=== PATIENT | male | born 1935 | race Caucasian/White ===

== ENCOUNTER → 2016-09-20 | Outpatient (CLI) | payer MEDICARE ==
--- NOTE | 2016-09-20 12:19 | EST ---
DATE OF SERVICE: 09/20/2016 AGE: 80Y SEX: M HT: 70 WT: 223 lbs. Protocol Quoc: X Other: Stage: I Dur. of Exercise: 2 minutes *Heart Rate Blood Pressure *Rest: 70 Rest: 139/106 * *Max. Achieved: 125 Maximum BP: 146/94 85% PMHR: 119 100% PMHR: 146 *METS: 3.2 INDICATIONS: Chest pain. MEDICATIONS: Verapamil, warfarin. Patient was exercised for a total period of 2 minutes. The peak heart rate of 125 was achieved. Maximum blood pressure of 146/94 mmHg was noted. Test was terminated because patient got short of breath and tired. Resting EKG shows normal sinus rhythm with normal AK interval and QRS duration and normal ST-T waves. No ST segment depression suggestive of ischemia is noted. FINAL IMPRESSION: 1. There is no evidence of any ST segment depression to suggest ischemia during exercise. 2. Patient's exercise tolerance is significantly limited and he exercised only for 2 minutes.
== END | disposition home or self-care (01) ==
LOC: RADNMMAIN 10:49
PROVIDERS: ATTEND Internal Medicine
DX: R07.89 Other chest pain (principal)
CPT/HCPCS: 93017

== ENCOUNTER 2016-11-01 08:31 | Emergency (ER) | payer MEDICARE ==
--- NOTE | 2016-11-01 08:53 | ED ---
Extremity Problem HPI - General Chief complaint: Extremity Problem,Nontraumatic Stated complaint: leg pain, blood clot Time Seen by Provider: 11/01/16 08:46 Source: patient, RN notes reviewed Mode of arrival: ambulatory Limitations: no limitations - History of Present Illness Initial comments: [id number] male presents emergency Department chief complaint of right ankle pain. Patient states that he has been having some pain to his right ankle and itching for the last day or so. Patient states that he has a history of blood clots he has been using his medication COumadin as prescribed patient at this area pain and some redness to right ankle states that he should be seen. Patient has been able to walk. Patient denies any shortness of breath or difficulty breathing. Patient states it's worse to touch or movement. Patient states that he was concerned due to his symptoms were thought that he should be evaluated.Patient denies any recent fever, chills, shortness of breath , chest pain, back pain, abdominal pain, nausea vomiting, numbness or tingling, dysuria or hematuria, constipation or diarrhea, headaches or visual changes, or any other current symptoms. - Related Data Home Medications Medication Instructions Recorded Confirmed Verapamil HCl [Calan] 80 mg PO QID 10/18/13 11/01/16 Multivitamin/Iron/Folic Acid 1 tab PO DAILY 07/06/14 11/01/16 [Centrum Complete Multivit Tab] Docusate [Colace] 100 mg PO DAILY PRN 11/01/16 11/01/16 Warfarin [Coumadin] 5 mg PO HS 11/01/16 11/01/16 Allergies Allergy/AdvReac Type Severity Reaction Status Date / Time Penicillins Allergy Rash/Hives Verified 11/01/16 09:13 Sulfa (Sulfonamide Allergy Unknown Verified 11/01/16 09:13 Antibiotics) Review of Systems ROS Statement: Those systems with pertinent positive or pertinent negative responses have been documented in the HPI. ROS Other: All systems not noted in ROS Statement are negative. Past Medical History Past Medical History: Atrial Fibrillation, Deep Vein Thrombosis (DVT), Hypertension Additional Past Medical History / Comment(s): DVT X3, DIVERTICULITIS, SHOE LIFT RT SHOE-NO BALANCE ISSUES, History of Any Multi-Drug Resistant Organisms: None Reported Past Surgical History: Adenoidectomy, Appendectomy, Cholecystectomy, Hernia Repair, Joint Replacement, Tonsillectomy Additional Past Surgical History / Comment(s): CHRIS INGUINAL HERNIAS, RT HIP HIPLACEMENT. PER PT'S IN 2011 PT HAD BURST VESSEL THAT WENT TO BOWEL TOOK 3 SX TO REPAIR. HAD THE SX AT [facility] IN [facility].ORIF RT WRIST , [place] filter Past Anesthesia/Blood Transfusion Reactions: No Reported Reaction Past Psychological History: No Psychological Hx Reported Smoking Status: Never smoker Past Alcohol Use History: None Reported Past Drug Use History: None Reported - Past Family History Father Additional Family Medical History / Comment(s): AGE 96 HAD A HEART TRANSPLANT AT AGE 91 Mother Family Medical History: Unable to Obtain General Exam - General Exam Comments Initial Comments: General: The patient is awake and alert, in no distress, and does not appear acutely ill. Neck: The neck is supple, there is no tenderness. Cardiovascular: There is a regular rate and rhythm. No murmur, rub or gallop is appreciated. Respiratory: Lungs are clear to auscultation, respirations are non-labored, breath sounds are equal. No wheezes, stridor, rales, or rhonchi. Musculoskeletal: Sensation intact with 2+ pulses. Extremity. Full range of motion of right knee and ankle with a negative Homans sign. Patient does have multiple varicose veins. There is some tenderness over the medial aspect of the right ankle. There is varicose vein there. Suspected superficial thrombophlebitis. Neurological: CN II-XII intact, There are no obvious motor or sensory deficits. Coordination appears grossly intact. Speech is normal. Skin: Skin is warm and dry and no rashes or lesions are noted. Psychiatric: Normal mood and affect. Limitations: no limitations Course Vital Signs 11/01/16 08:35 Temperature 97.7 F Pulse Rate 70 Respiratory 20 Rate Blood Pressure 142/87 O2 Sat by Pulse 98 Oximetry Medical Decision Making - Medical Decision Making 81-year-old female with history of blood clots presents for right lower extremity pain. 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 Coumadin level is 1.6 we did discuss this is the lowest range. We did discuss needs to contact his doctor this value. The patient stated that he understood and he is in agreement with plan. This time the patient will be discharged home. - Lab Data Lab Results 11/01/16 Range/Units 10:40 PT 15.9 H (9.0-12.0) sec INR 1.6 (<1.1) - Radiology Data Radiology results: report reviewed, image reviewed Disposition Clinical Impression: DVT (deep venous thrombosis) Disposition: HOME SELF-CARE Condition: Stable Instructions: Deep Venous Thrombosis (ED) Additional Instructions: Please use medication as discussed. Please follow up with family doctor if symptoms have not improved over the next two days. Please return to the emergency room if your symptoms increase or worsen or for any other concerns. Please follow up with for recheck of your INR in 2 days. Referrals: Scot Chapa MD [Primary Care Provider] - 1-2 days Time of Disposition: 11:03
--- NOTE | 2016-11-01 10:25 | US ---
EXAMINATION TYPE: US venous doppler duplex LE RT DATE OF EXAM: 11/01/2016 10:08 AM COMPARISON: US 2016 CLINICAL HISTORY: Pain. Swelling right ankle x 2 days SIDE PERFORMED: Right TECHNIQUE: The lower extremity deep venous system is examined utilizing real time linear array sonog rosalva with graded compression, doppler sonography and color-flow sonography. VESSELS IMAGED: External Iliac Vein (EIV) Common Femoral Vein Deep Femoral Vein Greater Saphenous Vein * Femoral Vein Popliteal Vein Small Saphenous Vein * Proximal Calf Veins (* superficial vessels) Right Leg: Thready flow noted. Was able to compress and get augmented flow. ? chronic DVT right Fem oral vein through proximal popliteal vein. IMPRESSION: It is difficult to exclude mild chronic DVT right femoral vein.
[2016-11-01 10:58] LABS: INR 1.6 (<1.1); Prothrombin Time 15.9 sec (9.0-12.0)
[2016-11-01] MEDS ORDERED: WARFARIN 5 MG TAB PO STA (11:04)
[2016-11-01 11:26] VITALS: BP 126/73; PULSE 64; RESP 18; TEMP 97.8
== END 2016-11-01 11:28 | disposition home or self-care (01) ==
LOC: EC 08:31
DX: I82.511 Chronic embolism and thrombosis of right femoral vein (principal); I82.531 Chronic embolism and thrombosis of right popliteal vein; R89.2 Abnormal level of other drugs, medicaments and biological substances in specimens from other organs, systems and tissues; Z91.138 Patient's unintentional underdosing of medication regimen for other reason; T45.516A Underdosing of anticoagulants, initial encounter; I48.91 Unspecified atrial fibrillation; I10 Essential (primary) hypertension; Z79.899 Other long term (current) drug therapy; Z88.2 Allergy status to sulfonamides; Z88.0 Allergy status to penicillin; Z86.718 Personal history of other venous thrombosis and embolism; Z79.01 Long term (current) use of anticoagulants
CPT/HCPCS: 36415; 85610; 99284

== ENCOUNTER 2017-06-05 10:12 | Day surgery (SDC) | payer MEDICARE ==
[2017-05-28 14:47] VITALS: BMI 33.0
[~2017-06-05 10:12] MED LIST: DEXAMETHASONE SOD PHOSPHATE 10 MG/ML 1 ML VIAL IV ONE; LACTATED RINGERS 1,000 ML IV SCH; ONDANSETRON 4 MG/2 ML VIAL IVP ONE
[2017-06-05 10:48] VITALS: TEMP 98.7
[2017-06-05] MEDS: CYCLOPENTOLATE 1% OPHTH SOLN 2 ML BTL OP ONE ×3 (10:50→11:13)
[2017-06-05] MEDS: PHENYLEPHRINE 10% OPHTH DROPS 5 ML BTL OP ONE ×3 (10:53→11:16)
[2017-06-05] MEDS: FLURBIPROFEN 0.03% OPHTH DROPS 2.5 ML BTL OP ONE ×3 (10:58→11:25)
[2017-06-05] MEDS: LIDOCAINE 1% 20 ML VIAL (10MG/ML) FOR IV START INTRADERMA PRN ×2 (11:15→11:22)
[2017-06-05] MEDS ORDERED: PROPOFOL 10 MG/ML 20 ML VIAL IV ONE (11:31)
[2017-06-05] MEDS ORDERED: EPINEPHrine (PF) 0.5 ML in BALANCED SALT IRRIG SOLN COMB2 500 ML IRRIGATION ONE (11:33)
[2017-06-05] MEDS ORDERED: HYALURONATE SODIUM INTRAOCULAR 1 EACH SYRINGE (10MG/ML) INTRAOCULA ONE (11:35)
[2017-06-05] MEDS: BUPIVACAINE (PF) 0.75% 5 ML, HYALURONIDASE, HUMAN RECOMB 150 UNIT, LIDOCAINE 2% (PF) 10... MISCELLANE ONE ×6 (11:35→11:37)
[2017-06-05] MEDS ORDERED: BALANCED SALT IRRIG SOLN COMB2 15 ML IRRIG.SOLN IRRIGATION ONE (11:35)
[2017-06-05] MEDS ORDERED: TETRACAINE 0.5% OPHTH (PF) DROPS 4 ML BTL RIGHT EYE ONE (11:36)
--- NOTE | 2017-06-05 12:05 | P.OP ---
Date of Procedure: 06/05/17 Procedure(s) Performed: PREOPERATIVE DIAGNOSIS: Cataract, right eye. POSTOPERATIVE DIAGNOSIS: Cataract, right eye. OPERATION: Phacoemulsification cataract, right eye. DESCRIPTION OF PROCEDURE: The patient was taken to the preoperative holding area. Intravenous Propofol was given so as to bring about adequate sedation. The following mixture was given for local anesthesia: 5 mL of 2% lidocaine, 5 mL of 0.75% Marcaine, and 1 mL of Wydase. Approximately 4 mL was injected in the retrobulbar space of the surgical eye. Additional 1 mL was then directed to the temporal area of the surgical eye. This was performed to allow adequate neurological block of the facial muscles. The patient was revived and then taken into the operative room. The patient was prepped and draped in the usual sterile manner for the operative eye. A lid speculum was put into position. The conjunctiva was resected back from the limbus in the 12 o'clock position. Bleeding was controlled with electrocautery. A #69 blade was then used and a half-thickness scleral incision approximately 1-mm posterior to the limbus was made on bare sclera. This was shelved in the clear cornea using a crescent knife. Next a 15-degree blade was used to make a stab incision at the 3 o' clock position at the corneolimbal interface. Keratome blade was then used and the superior wound was extended into the anterior chamber. Viscoelastic was injected into the anterior chamber and to maintain its form. Next, a cystotome was used and a continuous anterior capsulotomy was made without difficulty. Hydrodissection using a blunt cannula and BSS was performed. Phaco probe was then employed and a groove extending from 12 to 6 o'clock in the lens was created. A Glenroy wand was used through the stab incision so as to perform a divide and conquer technique. Next an irrigation aspiration probe was utilized and any residual cortex was removed from the eye. Again, viscoelastic was injected into the anterior chamber. An Grayson posterior chamber lens implant was placed in the cartridge and injected into the anterior chamber without difficulty. The Sahale Snacksey hook was utilized to spin the lens into position and this was again performed without any difficulty. The irrigation and aspiration probe was again employed and any residual viscoelastic was removed from the eye. Then BSS was injected into the limbal stab incision and the anterior chamber re-inflated. The conjunctiva was reapproximated using electrocautery. One drop of 0.25% Timoptic was placed over the corneal along with TobraDex ophthalmic ointment. Two sterile patches and a Dejesus eye shield were taped into position. The patient was transported to the recovery room in stable condition. Pathology: none sent Condition: stable Disposition: same day
[2017-06-05 12:38] VITALS: BP 130/77; PULSE 62; RESP 18
[2017-06-05] MEDS ORDERED: TIMOLOL 0.5% OPHTH DROPS 5 ML BTL OP ONE (23:00)
[2017-06-05] MEDS ORDERED: GENTAMICIN/PREDNISOL AC OPHTH OINT 3.5GM OPHTHALMIC ONE (23:00)
== END 2017-06-05 12:52 | disposition home or self-care (01) ==
LOC: OR 10:12
PROVIDERS: ATTEND Ophthalmology
DX: H25.11 Age-related nuclear cataract, right eye (principal); I10 Essential (primary) hypertension; I48.91 Unspecified atrial fibrillation; Z86.718 Personal history of other venous thrombosis and embolism; Z88.0 Allergy status to penicillin; Z88.2 Allergy status to sulfonamides; Z79.01 Long term (current) use of anticoagulants; Z79.899 Other long term (current) drug therapy
CPT/HCPCS: 66984; V2632; V2788; J3470; J2001; J0171; J2704

== ENCOUNTER → 2017-08-28 | Outpatient (CLI) | payer MEDICARE ==
--- NOTE | 2017-08-28 11:20 | US ---
EXAMINATION TYPE: US venous doppler duplex LE LT DATE OF EXAM: 08/28/2017 11:10 AM COMPARISON: Left lower extremity venous ultrasound December 21, 2014 CLINICAL HISTORY: M79.662,R22.42 PAIN AND SWELLING IN LT LOWER LIMB. SIDE PERFORMED: Left TECHNIQUE: The lower extremity deep venous system is examined utilizing real time linear array sonog rosalva with graded compression, doppler sonography and color-flow sonography. VESSELS IMAGED: External Iliac Vein (EIV) Common Femoral Vein Deep Femoral Vein Greater Saphenous Vein * Femoral Vein Popliteal Vein Small Saphenous Vein * Proximal Calf Veins (* superficial vessels) Left Leg: Negative for acute DVT. There is evidence of chronic DVT seen throughout with echogenic st randing noted. Grayscale, color doppler, spectral doppler imaging performed of the deep veins of the left lower extr emity. There is normal flow, compressibility, vascular waveforms. IMPRESSION: No evidence of new acute DVT in the left lower extremity. Areas of chronic thrombus not ed throughout the left lower extremity.
== END ==
LOC: RADUSWWP 10:44
PROVIDERS: ATTEND Internal Medicine
DX: I82.5Z2 Chronic embolism and thrombosis of unspecified deep veins of left distal lower extremity (principal)

== ENCOUNTER → 2018-02-22 | Outpatient (CLI) | payer MEDICARE ==
[2018-02-22 11:55] LABS: INR 1.2 (<1.2); Prothrombin Time 11.8 sec (9.0-12.0)
--- NOTE | 2018-02-22 11:57 | US ---
EXAMINATION TYPE: US venous doppler duplex LE RT DATE OF EXAM: 02/22/2018 11:24 AM COMPARISON: US CLINICAL HISTORY: M79.661,R22.41 PAIN AND SWELLING IN RT LOWER LIMB. with pain at skin redness and va ricose veins at right ankle; on Coumadin; IVC Filter SIDE PERFORMED: Right TECHNIQUE: The lower extremity deep venous system is examined utilizing real time linear array sonog rosalva with graded compression, doppler sonography and color-flow sonography. VESSELS IMAGED: Common Femoral Vein Deep Femoral Vein Greater Saphenous Vein * (GSV) Femoral Vein Popliteal Vein Small Saphenous Vein * Proximal Calf Veins (* superficial vessels) Right Leg: is positive for chronic occluding DVT in Mid Femoral Vein and non occluding DVT right dis wendy Femoral Vein, Right Popliteal Vein and Proximal Calf Veins; is positive for Superficial Vein Thro mbosis in GSV at patient's complaint of pain right medial lower leg. IMPRESSION: 1. Chronic occluding DVT as noted. Superficial vein thrombosis as noted above.
== END | disposition home or self-care (01) ==
LOC: RADUSWWP 10:39
PROVIDERS: ATTEND Internal Medicine
DX: I82.511 Chronic embolism and thrombosis of right femoral vein (principal); I82.811 Embolism and thrombosis of superficial veins of right lower extremity; I48.91 Unspecified atrial fibrillation
CPT/HCPCS: 85610

== ENCOUNTER 2018-10-26 08:02 | Emergency (ER) | payer MEDICARE ==
[2018-10-26 08:07] VITALS: PULSE 65; RESP 18; TEMP 97.6
--- NOTE | 2018-10-26 08:31 | ED ---
General Adult HPI - General Chief complaint: Extremity Injury, Lower Stated complaint: Hip pain Time Seen by Provider: 10/26/18 08:09 Source: patient, RN notes reviewed, old records reviewed Mode of arrival: ambulatory Limitations: no limitations - History of Present Illness Initial comments: 83-year-old male presents with right hip pain. Pain is been present for the past 2 days. 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 He's had subsequent replacement in 1997. He does have intermittent right hip pain worse with overuse. He states in the past 2 days he's been quite active, moving furniture and believes he is irritated this hip. He's had no injury or trauma. Denies significant back pain. Denies abdominal pain. Denies pain distal to the hip. No knee pain, no ankle pain. No numbness or tingling of the extremities. - Related Data Home Medications Medication Instructions Recorded Confirmed Verapamil HCl [Calan] 80 mg PO QID 10/18/13 06/05/17 Multivitamin/Iron/Folic Acid 1 tab PO DAILY 07/06/14 06/05/17 [Centrum Complete Multivit Tab] Docusate [Colace] 100 mg PO DAILY PRN 11/01/16 06/05/17 Warfarin [Coumadin] 5 mg PO HS 11/01/16 06/05/17 Furosemide [Lasix] 20 mg PO DAILY PRN 05/28/17 06/05/17 Potassium Chloride [Klor-Con 10] 10 meq PO DAILY PRN 05/28/17 06/05/17 Allergies Allergy/AdvReac Type Severity Reaction Status Date / Time Penicillins Allergy Rash/Hives Verified 10/26/18 08:06 Sulfa (Sulfonamide Allergy Unknown Verified 10/26/18 08:06 Antibiotics) Review of Systems ROS Statement: Those systems with pertinent positive or pertinent negative responses have been documented in the HPI. ROS Other: All systems not noted in ROS Statement are negative. Past Medical History Past Medical History: Atrial Fibrillation, Deep Vein Thrombosis (DVT), Eye Disorder, Hypertension Additional Past Medical History / Comment(s): DVT X3, DIVERTICULITIS, SHOE LIFT RT SHOE-NO BALANCE ISSUES,chris cataracts History of Any Multi-Drug Resistant Organisms: None Reported Past Surgical History: Adenoidectomy, Appendectomy, Cholecystectomy, Hernia Repair, Joint Replacement, Tonsillectomy Additional Past Surgical History / Comment(s): CHRIS INGUINAL HERNIAS, RT HIP REPLACEMENT. PER PT'S IN 2011 PT HAD BURST VESSEL THAT WENT TO BOWEL TOOK 3 SX TO REPAIR. HAD THE SX AT [facility] IN [facility].[place] RT WRIST, [place] filter Past Anesthesia/Blood Transfusion Reactions: No Reported Reaction Past Psychological History: No Psychological Hx Reported Smoking Status: Never smoker Past Alcohol Use History: None Reported Past Drug Use History: None Reported - Past Family History Father Additional Family Medical History / Comment(s): AGE 96 HAD A HEART TRANSPLANT AT AGE 91 Mother Family Medical History: No Reported History General Exam Limitations: no limitations General appearance: alert, in no apparent distress Head exam: Present: atraumatic, normocephalic Eye exam: Present: normal appearance, PERRL ENT exam: Present: normal exam Neck exam: Present: normal inspection Respiratory exam: Present: normal lung sounds bilaterally. Absent: respiratory distress, wheezes Cardiovascular Exam: Present: regular rate, normal rhythm GI/Abdominal exam: Present: soft. Absent: distended, tenderness, guarding Extremities exam: Present: normal inspection, full ROM, normal capillary refill, pedal edema (trace), other (PT 2+). Absent: calf tenderness Neurological exam: Present: alert, CN II-XII intact, normal gait, motor sensory deficit, other (Normal gait, good strength in both proximal and distal lower extremity. He has no erythema, no significant swelling. He has normal range of motion at the hip and knee.) Psychiatric exam: Present: normal affect, normal mood Skin exam: Present: warm, dry, intact. Absent: cyanosis, diaphoretic Course Vital Signs 10/26/18 08:04 Temperature 97.6 F Pulse Rate 65 Respiratory 18 Rate Blood Pressure 156/80 O2 Sat by Pulse 96 Oximetry Medical Decision Making - Medical Decision Making 83-year-old male with acute on chronic right hip pain, likely secondary to overuse. X-ray showing total hip arthroplasty, no displaced fracture. There is periosteal reaction along the proximal femur. Patient is ambulatory, he will reduce his overuse, he will walk with a cane, partial weightbearing, he will follow-up with orthopedics. Disposition Clinical Impression: Right hip pain Disposition: HOME SELF-CARE Condition: Good Instructions (If sedation given, give patient instructions): Osteoarthritis (ED), Hip Sprain (ED) Is patient prescribed a controlled substance at d/c from ED?: No Referrals: Scot Chapa MD [Primary Care Provider] - 1-2 days Johnnie Berrios MD [STAFF PHYSICIAN] - 1-2 days Time of Disposition: 08:31
--- NOTE | 2018-10-26 08:50 | XR ---
EXAMINATION TYPE: XR Hip Complete RT , 2 VIEWS DATE OF EXAM ORDERED: 10/26/2018 HISTORY: Pain. COMPARISON: None. FINDINGS: There is a right hip arthroplasty in place. Prosthetic elements appear in good position. T here is some heterotopic new bone. There is a periosteal reaction along the proximal diaphysis of the femur. Definite cortical fracture is not seen. IMPRESSION: 1. STATUS POST RIGHT HIP ARTHROPLASTY. 2. PERIOSTEAL REACTION PROXIMAL FEMORAL DIAPHYSIS WITHOUT A DEFINITE CORTICAL FRACTURE.
[2018-10-26 09:13] VITALS: BP 148/79
== END 2018-10-26 09:12 | disposition home or self-care (01) ==
LOC: EC 08:02
DX: M25.551 Pain in right hip (principal); G89.29 Other chronic pain; I48.91 Unspecified atrial fibrillation; I10 Essential (primary) hypertension; Z79.01 Long term (current) use of anticoagulants; Z79.899 Other long term (current) drug therapy; Z88.0 Allergy status to penicillin; Z88.2 Allergy status to sulfonamides; Z86.718 Personal history of other venous thrombosis and embolism; Z96.641 Presence of right artificial hip joint
CPT/HCPCS: 73502; 99284

== ENCOUNTER 2019-10-28 12:22 | Emergency (ER) | payer MEDICARE ==
[2019-10-28] MEDS ORDERED: SODIUM CHLORIDE 0.9% 500 ML 500 ML IV STA (12:34)
--- NOTE | 2019-10-28 12:42 | ED ---
General Adult HPI - General Source: patient Mode of arrival: ambulatory Limitations: no limitations <Abdi Skinner Vera - Last Filed: 10/28/19 15:21> <Fatuma Shah Carlitos - Last Filed: 10/28/19 15:51> - General Chief complaint: Abdominal Pain Stated complaint: Abd pain Time Seen by Provider: 10/28/19 12:33 - History of Present Illness Initial comments: Dictation was produced using [facility] dictation software. please excuse any grammatical, word or spelling errors. This patient was cared for during a federal and state declared state of emergency secondary to Covid 19 Chief Complaint: 84-year-old male sent by his primary care physician for abdominal pain. History of Present Illness: Patient is a 84-year-old male who has past medical history of constipation. He was seen by his primary care physician earlier today. He was told to come to the emergency department. Patient states since yesterday has been having lower abdominal pain. He states that the pain is in his left and his right lower quadrant worse in the left. Patient denies any history of diverticulitis. He does have history of A. fib. He also has several other comorbidities. States that several years ago he had a ruptured vein in his abdomen requiring surgery. Patient states that he doesn't feel nauseated doesn't have any vomiting. He gets intermittent episodes of diarrhea and hard stools. The ROS documented in this emergency department record has been reviewed and confirmed by me. Those systems with pertinent positive or negative responses have been documented in the HPI. All other systems are other negative and/or noncontributory. PHYSICAL EXAM: General Impression: Alert and oriented x3, not in acute distress HEENT: Normocephalic atraumatic, extra-ocular movements intact, pupils equal and reactive to light bilaterally, mucous membranes moist. Cardiovascular: Heart regular rate and rhythm Chest: Able to complete full sentences, no retractions, no tachypnea Abdomen: Tympanitic to percussion, diffuse tenderness suspicion in the lower abdomen Musculoskeletal: Pulses present and equal in all extremities, no peripheral edema Motor: no focal deficits noted Neurological: CN II-XII grossly intact, no focal motor or sensory deficits noted Skin: Intact with no visualized rashes Psych: Normal affect and mood ED course: 84-year-old male with multiple comorbidities presents with abdominal pain. As upon arrival are within acceptable limits. Patient does take Coumadin for A. fib. Laboratory evaluation obtained found to be unremarkable except for some white blood cells in the urine. Patient given ceftriaxone. Patient care signed out to Dr. Shah for follow-up of CT imaging and final disposition. (Abdi Skinner) - Related Data Home Medications Medication Instructions Recorded Confirmed Multivitamin/Iron/Folic Acid 1 tab PO DAILY 07/06/14 10/28/19 [Centrum Complete Multivit Tab] Warfarin [Coumadin] 7.5 mg PO HS 11/01/16 10/28/19 Cholecalciferol [Vitamin D3 (25 1,000 unit PO DAILY 10/28/19 10/28/19 Mcg = 1000 Iu)] Verapamil [Isoptin] 80 mg PO QID 10/28/19 10/28/19 Previous Rx's Medication Instructions Recorded Cephalexin [Keflex] 500 mg PO Q6HR #28 cap 10/28/19 Allergies Allergy/AdvReac Type Severity Reaction Status Date / Time Penicillins Allergy Rash/Hives Verified 10/28/19 14:14 Sulfa (Sulfonamide Allergy Unknown Verified 10/28/19 14:14 Antibiotics) Review of Systems ROS Other: All systems not noted in ROS Statement are negative. <Abdi Skinner - Last Filed: 10/28/19 15:21> ROS Other: All systems not noted in ROS Statement are negative. <Fatuma Shah - Last Filed: 10/28/19 15:51> ROS Statement: Those systems with pertinent positive or pertinent negative responses have been documented in the HPI. Past Medical History Past Medical History: Atrial Fibrillation, Deep Vein Thrombosis (DVT), Eye Disorder, Hypertension Additional Past Medical History / Comment(s): DVT X3, DIVERTICULITIS, SHOE LIFT RT SHOE-NO BALANCE ISSUES,chris cataracts History of Any Multi-Drug Resistant Organisms: None Reported Past Surgical History: Adenoidectomy, Appendectomy, Cholecystectomy, Hernia Repair, Joint Replacement, Tonsillectomy Additional Past Surgical History / Comment(s): CHRIS INGUINAL HERNIAS, RT HIP REPLACEMENT. PER PT'S IN 2011 PT HAD BURST VESSEL THAT WENT TO BOWEL TOOK 3 SX TO REPAIR. HAD THE SX AT [facility] IN [facility].ORIF RT WRIST, [place] filter Past Anesthesia/Blood Transfusion Reactions: No Reported Reaction Past Psychological History: No Psychological Hx Reported Smoking Status: Never smoker Past Alcohol Use History: None Reported Past Drug Use History: None Reported - Past Family History Father Additional Family Medical History / Comment(s): AGE 96 HAD A HEART TRANSPLANT AT AGE 91 Mother Family Medical History: No Reported History <Abdi Skinner - Last Filed: 10/28/19 15:21> General Exam Limitations: no limitations <Abdi Skinner - Last Filed: 10/28/19 15:21> Course Vital Signs 10/28/19 10/28/19 12:27 13:59 Temperature 97.8 F Pulse Rate 98 88 Respiratory 16 20 Rate Blood Pressure 148/91 141/88 O2 Sat by Pulse 96 99 Oximetry Medical Decision Making - Lab Data Result diagrams: 10/28/19 13:12 10/28/19 13:12 <Abdi Skinner - Last Filed: 10/28/19 15:21> - Lab Data Result diagrams: 10/28/19 13:12 10/28/19 13:12 <Fatuma Shah - Last Filed: 10/28/19 15:51> - Medical Decision Making The patient was signed out to me from Dr. Skinner. I evaluated the patient myself. The patient remains with a non-peritoneal abdomen. I did discuss results of laboratory studies and imaging. Patient does have an abnormal UA. I did recommend antibiotic treatment until urine culture is obtained. I discussed the diagnosis, differential treatment options. At this time the patient feels comfortable going home. He is to follow-up with Dr. Chapa within 2-4 days. Return to the emergency room for any new or worsening symptoms per patient was discharged with stable condition (Fatuma Shah) - Lab Data Lab Results 10/28/19 10/28/19 10/28/19 Range/Units 13:12 13:12 13:12 WBC 9.9 (3.8-10.6) k/uL RBC 5.45 (4.30-5.90) m/uL Hgb 16.1 (13.0-17.5) gm/dL Hct 49.2 (39.0-53.0) % MCV 90.3 (80.0-100.0) fL MCH 29.5 (25.0-35.0) pg MCHC 32.7 (31.0-37.0) g/dL RDW 13.3 (11.5-15.5) % Plt Count 258 (150-450) k/uL Neutrophils % 86 % Lymphocytes % 7 % Monocytes % 5 % Eosinophils % 1 % Basophils % 0 % Neutrophils # 8.5 H (1.3-7.7) k/uL Lymphocytes # 0.7 L (1.0-4.8) k/uL Monocytes # 0.5 (0-1.0) k/uL Eosinophils # 0.1 (0-0.7) k/uL Basophils # 0.0 (0-0.2) k/uL PT 22.9 H (9.0-12.0) sec INR 2.4 H (<1.2) APTT 33.2 H (22.0-30.0) sec Sodium 137 (137-145) mmol/L Potassium 4.6 (3.5-5.1) mmol/L Chloride 105 (98-107) mmol/L Carbon Dioxide 24 (22-30) mmol/L Anion Gap 8 mmol/L BUN 26 H (9-20) mg/dL Creatinine 1.14 (0.66-1.25) mg/dL Est GFR (CKD-EPI)AfAm 68 (>60 ml/min/1.73 sqM) Est GFR (CKD-EPI)NonAf 59 (>60 ml/min/1.73 sqM) Glucose 103 H (74-99) mg/dL Plasma Lactic Acid Lio (0.7-2.0) mmol/L Calcium 9.5 (8.4-10.2) mg/dL Total Bilirubin 0.9 (0.2-1.3) mg/dL AST 29 (17-59) U/L ALT 19 (4-49) U/L Alkaline Phosphatase 127 H (38-126) U/L Total Protein 7.2 (6.3-8.2) g/dL Albumin 4.2 (3.5-5.0) g/dL Lipase 77 (23-300) U/L Urine Color Urine Appearance (Clear) Urine pH (5.0-8.0) Ur Specific [place] (1.001-1.035) Urine Protein (Negative) Urine Glucose (UA) (Negative) Urine Ketones (Negative) Urine Blood (Negative) Urine Nitrite (Negative) Urine Bilirubin (Negative) Urine Urobilinogen (<2.0) mg/dL Ur Leukocyte Esterase (Negative) Urine RBC (0-5) /hpf Urine WBC (0-5) /hpf Ur Squamous Epith Cells (0-4) /hpf Urine Bacteria (None) /hpf Hyaline Casts (0-2) /lpf Urine Mucus (None) /hpf 10/28/19 10/28/19 Range/Units 13:12 13:21 WBC (3.8-10.6) k/uL RBC (4.30-5.90) m/uL Hgb (13.0-17.5) gm/dL Hct (39.0-53.0) % MCV (80.0-100.0) fL MCH (25.0-35.0) pg MCHC (31.0-37.0) g/dL RDW (11.5-15.5) % Plt Count (150-450) k/uL Neutrophils % % Lymphocytes % % Monocytes % % Eosinophils % % Basophils % % Neutrophils # (1.3-7.7) k/uL Lymphocytes # (1.0-4.8) k/uL Monocytes # (0-1.0) k/uL Eosinophils # (0-0.7) k/uL Basophils # (0-0.2) k/uL PT (9.0-12.0) sec INR (<1.2) APTT (22.0-30.0) sec Sodium (137-145) mmol/L Potassium (3.5-5.1) mmol/L Chloride (98-107) mmol/L Carbon Dioxide (22-30) mmol/L Anion Gap mmol/L BUN (9-20) mg/dL Creatinine (0.66-1.25) mg/dL Est GFR (CKD-EPI)AfAm (>60 ml/min/1.73 sqM) Est GFR (CKD-EPI)NonAf (>60 ml/min/1.73 sqM) Glucose (74-99) mg/dL Plasma Lactic Acid Lio 1.2 (0.7-2.0) mmol/L Calcium (8.4-10.2) mg/dL Total Bilirubin (0.2-1.3) mg/dL AST (17-59) U/L ALT (4-49) U/L Alkaline Phosphatase (38-126) U/L Total Protein (6.3-8.2) g/dL Albumin (3.5-5.0) g/dL Lipase (23-300) U/L Urine Color Yellow Urine Appearance Clear (Clear) Urine pH 6.5 (5.0-8.0) Ur Specific [place] 1.021 (1.001-1.035) Urine Protein 1+ H (Negative) Urine Glucose (UA) Negative (Negative) Urine Ketones Negative (Negative) Urine Blood Negative (Negative) Urine Nitrite Negative (Negative) Urine Bilirubin Negative (Negative) Urine Urobilinogen <2.0 (<2.0) mg/dL Ur Leukocyte Esterase Large H (Negative) Urine RBC 5 (0-5) /hpf Urine WBC 20 H (0-5) /hpf Ur Squamous Epith Cells <1 (0-4) /hpf Urine Bacteria Rare H (None) /hpf Hyaline Casts 4 H (0-2) /lpf Urine Mucus Moderate H (None) /hpf Disposition <Abdi Skinner - Last Filed: 10/28/19 15:21> Is patient prescribed a controlled substance at d/c from ED?: No Time of Disposition: 15:48 <Fatuma Shah - Last Filed: 10/28/19 15:51> Clinical Impression: Abdominal pain, Enteritis, Abnormal urinalysis, Anticoagulated on Coumadin Disposition: HOME SELF-CARE Condition: Stable Instructions (If sedation given, give patient instructions): Abdominal Pain (ED) Additional Instructions: Please take the antibiotics as directed. Follow-up with Dr. Chapa in 2-4 days. Return to the emergency room for any new or worsening symptoms Prescriptions: Cephalexin [Keflex] 500 mg PO Q6HR #28 cap Referrals: Scot Chapa MD [Primary Care Provider] - 1-2 days
[2019-10-28 13:23] LABS: Basophils % (A) 0 %; Eosinophils # (A) 0.1 k/uL (0-0.7); Eosinophils % (A) 1 %; HCT 49.2 % (39.0-53.0); HGB 16.1 gm/dL (13.0-17.5); Lymphocytes # (A) 0.7 k/uL (1.0-4.8); Lymphocytes % (A) 7 %; MCH 29.5 pg (25.0-35.0); MCHC 32.7 g/dL (31.0-37.0); MCV 90.3 fL (80.0-100.0); Monocytes # (A) 0.5 k/uL (0-1.0); Monocytes % (A) 5 %; Neutrophils # (A) 8.5 k/uL (1.3-7.7); Neutrophils % (A) 86 %; Platelet Count 258 k/uL (150-450); RBC 5.45 m/uL (4.30-5.90); RDW 13.3 % (11.5-15.5); WBC 9.9 k/uL (3.8-10.6)
[2019-10-28 13:32] LABS: INR 2.4 (<1.2); Partial Thromboplastin Time 33.2 sec (22.0-30.0); Prothrombin Time 22.9 sec (9.0-12.0)
[2019-10-28 13:51] LABS: Appearance,Urine Clear (Clear); Bacteria,Urine Rare /hpf; Bilirubin,Urine Negative (Negative); Blood,Urine Negative (Negative); Color,Urine Yellow; Glucose,Urine (UA) Negative (Negative); Hyaline Casts,Urine 4 /lpf (0-2); Ketones,Urine Negative (Negative); Leukocyte Esterase,Urine Large (Negative); Mucus,Urine Moderate /hpf; Nitrite,Urine Negative (Negative); PH, Urine 6.5 (5.0-8.0); Protein,Urine 1+ (Negative); RBC,Urine 5 /hpf (0-5); Specific Gravity,Urine 1.021 (1.001-1.035); Squamous Epithelial Cell,Urine <1 /hpf (0-4); Urobilinogen,Urine <2.0 mg/dL (<2.0); WBC,Urine 20 /hpf (0-5)
[2019-10-28 13:59] LABS: Albumin 4.2 g/dL (3.5-5.0); Calcium 9.5 mg/dL (8.4-10.2); Potassium 4.6 mmol/L (3.5-5.1); Total Bilirubin 0.9 mg/dL (0.2-1.3); Total Protein 7.2 g/dL (6.3-8.2)
[2019-10-28 14:01] VITALS: RESP 20
[2019-10-28] MEDS ORDERED: cefTRIAXone IN SWFI 1,000 MG/10 ML SYRINGE IVP STA (14:43)
[2019-10-28] MEDS ORDERED: POLYETHYLENE GLYCOL 3350 17 GM POWD.PACK PO STA (14:46)
--- NOTE | 2019-10-28 15:25 | CT ---
EXAMINATION TYPE: CT abdomen pelvis w con DATE OF EXAM: 10/28/2019 COMPARISON: 11/01/2010 HISTORY: Generalized abdominal pain CT DLP: 1691 mGycm CONTRAST: CT scan of the abdomen and pelvis is performed without Oral Contrast and with IV Contrast, patient in jected with 80 mL of Isovue 300. FINDINGS: LUNG BASES-: Basilar parenchymal scarring. Chronic elevation left hemidiaphragm. LIVER/GB: No calcified gallstones. No space occupying hepatic lesion. Biliary tree is of normal ca liber. PANCREAS: No inflammation. No distinct mass. SPLEEN: No splenic enlargement. No lesion seen. ADRENALS: No nodule. No thickening. KIDNEYS/BLADDER: No hydronephrosis. No nephrolithiasis. Renal cystic changes noted. Urinary bladder grossly unremarkable. BOWEL: Mild distention of jejunal loops which are fluid-filled although not dilated. The findings may reflect enteritis. There is scattered colonic diverticulosis without diverticulitis. No free air girma ntified. No evidence for abscess. GENITAL ORGANS: Prostatomegaly LYMPH NODES: No greater than 1cm abdominal or pelvic lymph nodes are appreciated. AORTA: No significant abnormality. OSSEOUS STRUCTURES: Severe degenerative changes of the lumbar spine. Chronic loss of height involving L2 at its superior endplate mild in degree. OTHER: IVC filter noted. IMPRESSION: 1. Correlate for small bowel enteritis.
[2019-10-28 16:14] VITALS: BP 138/65; PULSE 80; TEMP 98
== END 2019-10-28 16:06 | disposition home or self-care (01) ==
LOC: EC 12:22
DX: K52.9 Noninfective gastroenteritis and colitis, unspecified (principal); R82.90 Unspecified abnormal findings in urine; I48.91 Unspecified atrial fibrillation; Z79.01 Long term (current) use of anticoagulants; Z86.718 Personal history of other venous thrombosis and embolism; Z88.0 Allergy status to penicillin; Z88.2 Allergy status to sulfonamides; Z90.89 Acquired absence of other organs; Z90.49 Acquired absence of other specified parts of digestive tract; Z96.641 Presence of right artificial hip joint; Z98.42 Cataract extraction status, left eye; Z98.41 Cataract extraction status, right eye
CPT/HCPCS: 36415; 80053; 83605; 83690; 85025; 85610; 85730; 81001; 87086; 74177; 99284; 96374; 96361 ×3; J0696; Q9967

== ENCOUNTER 2020-12-04 06:47 | Emergency (ER) | payer MEDICARE ==
--- NOTE | 2020-12-04 07:04 | ED ---
General Adult HPI - General Chief complaint: Chest Pain Stated complaint: Chest Pain Time Seen by Provider: 12/04/20 06:51 Source: patient, EMS, RN notes reviewed Mode of arrival: EMS Limitations: no limitations - History of Present Illness Initial comments: 85-year-old male with a past medical history of atrial fibrillation, DVT 3, hypertension, currently on Coumadin presents to the emergency room for chest pain. Patient states he notices a sharp pain for the past 3 hours on the left side of his chest. Patient states it worsens when he takes a deep breath. Patient states the area feels sensitive. Patient denies shortness of breath or diaphoresis. denies radiating pain. Denies nausea. Patient has no other complaints at this time including shortness of breath, abdominal pain, nausea or vomiting, headache, or visual changes. - Related Data Home Medications Medication Instructions Recorded Confirmed Multivitamin/Iron/Folic Acid 1 tab PO DAILY 07/06/14 10/28/19 [Centrum Complete Multivit Tab] Warfarin [Coumadin] 7.5 mg PO HS 11/01/16 10/28/19 Cholecalciferol [Vitamin D3 (25 1,000 unit PO DAILY 10/28/19 10/28/19 Mcg = 1000 Iu)] Verapamil [Isoptin] 80 mg PO QID 10/28/19 10/28/19 Previous Rx's Medication Instructions Recorded Cephalexin [Keflex] 500 mg PO Q6HR #28 cap 10/28/19 Azithromycin [Zithromax Z-pack (6 250 mg PO DIRECTED #6 tab 12/04/20 tabs)] Cefuroxime [Ceftin] 500 mg PO BID 10 Days #40 tab 12/04/20 Allergies Allergy/AdvReac Type Severity Reaction Status Date / Time Penicillins Allergy Rash/Hives Verified 12/04/20 06:54 Sulfa (Sulfonamide Allergy Unknown Verified 12/04/20 06:54 Antibiotics) Review of Systems ROS Statement: Those systems with pertinent positive or pertinent negative responses have been documented in the HPI. ROS Other: All systems not noted in ROS Statement are negative. Past Medical History Past Medical History: Atrial Fibrillation, Deep Vein Thrombosis (DVT), Eye Disorder, Hypertension Additional Past Medical History / Comment(s): DVT X3, DIVERTICULITIS, SHOE LIFT RT SHOE-NO BALANCE ISSUES,chris cataracts History of Any Multi-Drug Resistant Organisms: None Reported Past Surgical History: Adenoidectomy, Appendectomy, Cholecystectomy, Hernia Repair, Joint Replacement, Tonsillectomy Additional Past Surgical History / Comment(s): CHRIS INGUINAL HERNIAS, RT HIP REPLACEMENT. PER PT'S IN 2011 PT HAD BURST VESSEL THAT WENT TO [place]EL TOOK 3 SX TO REPAIR. HAD THE SX AT [facility] IN [facility]ORIF RT WRIST, [place] filter Past Anesthesia/Blood Transfusion Reactions: No Reported Reaction Past Psychological History: No Psychological Hx Reported Smoking Status: Never smoker Past Alcohol Use History: None Reported Past Drug Use History: None Reported - Past Family History Father Additional Family Medical History / Comment(s): AGE 96 HAD A HEART TRANSPLANT AT AGE 91 Mother Family Medical History: No Reported History General Exam Limitations: no limitations General appearance: alert, in no apparent distress Head exam: Present: atraumatic, normocephalic, normal inspection Eye exam: Present: normal appearance, PERRL, EOMI. Absent: scleral icterus, conjunctival injection, periorbital swelling ENT exam: Present: normal exam, mucous membranes moist Neck exam: Present: normal inspection, full ROM. Absent: tenderness, meningismus, lymphadenopathy Respiratory exam: Present: normal lung sounds bilaterally, chest wall tenderness. Absent: respiratory distress, wheezes, rales, rhonchi, stridor Cardiovascular Exam: Present: regular rate, normal rhythm, normal heart sounds. Absent: systolic murmur, diastolic murmur, rubs, gallop, clicks GI/Abdominal exam: Present: soft, normal bowel sounds. Absent: distended, tenderness, guarding, rebound, rigid Course Vital Signs 12/04/20 12/04/20 12/04/20 06:49 06:54 07:26 Temperature 98.2 F Pulse Rate 78 71 Pulse Rate [ 77 Binding Folder Machine ] Respiratory 18 20 Rate Blood Pressure 143/95 143/95 O2 Sat by Pulse 96 93 L Oximetry 12/04/20 12/04/20 08:35 09:26 Temperature Pulse Rate 71 70 Pulse Rate [ Binding Folder Machine ] Respiratory 20 20 Rate Blood Pressure 136/96 144/96 O2 Sat by Pulse 94 L 94 L Oximetry EKG Findings - EKG Comments: EKG Findings:: Normal sinus rhythm, ventricular rate 74, NC interval 178, QTC 450 Medical Decision Making - Medical Decision Making Vitals are stable. Patient is well appearing. Patient presents for sharp pleuritic chest pain, atypical in nature. Patient is generally 94% on room air. CBC is unremarkable. CMP does show evidence of chronic kidney disease. Patient was given a small bolus of fluids, orally rehydrating. Troponin is negative w ith a nonischemic EKG. D-dimer is negative. Chest x-ray does show small patchy infiltrates within the right mid lung and left lower lung sandhu. Correlate for atelectasis or pneumonia. Clinically with patient's pleuritic sharp chest pain this is consistent with a pneumonia. Planned to admit patient to the hospital however he prefers discharge home. He will be given a dose of Rocephin and diana thromycin here in the ER. He was discharged home with dual therapy cefuroxime and azithromycin. He will follow up with his doctor on Sunday. He will return here for any worsening symptoms. - Lab Data Result diagrams: 12/04/20 07:12/04/20 07:21 Lab Results 12/04/20 12/04/20 12/04/20 Range/Units 07:21 07: 07:21 WBC 8.7 (3.8-10.6) k/uL RBC 5.17 (4.30-5.90) m/uL Hgb 15.8 (13.0-17.5) gm/dL Hct 48.0 (39.0-53.0) % MCV 92.7 (80.0-100.0) fL MCH 30.6 (25.0-35.0) pg MCHC 33.0 (31.0-37.0) g/dL RDW 13.4 (11.5-15.5) % Plt Count 253 (150-450) k/uL MPV 8.0 Neutrophils % 78 % Lymphocytes % 12 % Monocytes % 6 % Eosinophils % 3 % Basophils % 0 % Neutrophils # 6.7 (1.3-7.7) k/uL Lymphocytes # 1.0 (1.0-4.8) k/uL Monocytes # 0.5 (0-1.0) k/uL Eosinophils # 0.2 (0-0.7) k/uL Basophils # 0.0 (0-0.2) k/uL PT 27.4 H (9.0-12.0) sec INR 2.8 H (<1.2) APTT 34.1 H (22.0-30.0) sec D-Dimer <0.17 (<0.60) mg/L FEU Sodium 142 (137-145) mmol/L Potassium 4.3 (3.5-5.1) mmol/L Chloride 109 H (98-107) mmol/L Carbon Dioxide 25 (22-30) mmol/L Anion Gap 8 mmol/L BUN 34 H (9-20) mg/dL Creatinine 1.41 H (0.66-1.25) mg/dL Est GFR (CKD-EPI)AfAm 52 (>60 ml/min/1.73 sqM) Est GFR (CKD-EPI)NonAf 45 (>60 ml/min/1.73 sqM) Glucose 99 (74-99) mg/dL Calcium 9.0 (8.4-10.2) mg/dL Magnesium 2.2 (1.6-2.3) mg/dL Total Bilirubin 0.4 (0.2-1.3) mg/dL AST 27 (17-59) U/L ALT 17 (4-49) U/L Alkaline Phosphatase 104 (38-126) U/L Troponin I (0.000-0.034) ng/mL NT-Pro-B Natriuret Pep pg/mL Total Protein 6.2 L (6.3-8.2) g/dL Albumin 3.6 (3.5-5.0) g/dL Lipase 124 (23-300) U/L Coronavirus (PCR) (Not Detectd) 12/04/20 12/04/20 12/04/20 Range/Units 07:21 07: 08:42 WBC (3.8-10.6) k/uL RBC (4.30-5.90) m/uL Hgb (13.0-17.5) gm/dL Hct (39.0-53.0) % MCV (80.0-100.0) fL MCH (25.0-35.0) pg MCHC (31.0-37.0) g/dL RDW (11.5-15.5) % Plt Count (150-450) k/uL MPV Neutrophils % % Lymphocytes % % Monocytes % % Eosinophils % % Basophils % % Neutrophils # (1.3-7.7) k/uL Lymphocytes # (1.0-4.8) k/uL Monocytes # (0-1.0) k/uL Eosinophils # (0-0.7) k/uL Basophils # (0-0.2) k/uL PT (9.0-12.0) sec INR (<1.2) APTT (22.0-30.0) sec D-Dimer (<0.60) mg/L FEU Sodium (137-145) mmol/L Potassium (3.5-5.1) mmol/L Chloride (98-107) mmol/L Carbon Dioxide (22-30) mmol/L Anion Gap mmol/L BUN (9-20) mg/dL Creatinine (0.66-1.25) mg/dL Est GFR (CKD-EPI)AfAm (>60 ml/min/1.73 sqM) Est GFR (CKD-EPI)NonAf (>60 ml/min/1.73 sqM) Glucose (74-99) mg/dL Calcium (8.4-10.2) mg/dL Magnesium (1.6-2.3) mg/dL Total Bilirubin (0.2-1.3) mg/dL AST (17-59) U/L ALT (4-49) U/L Alkaline Phosphatase (38-126) U/L Troponin I <0.012 (0.000-0.034) ng/mL NT-Pro-B Natriuret Pep 87 pg/mL Total Protein (6.3-8.2) g/dL Albumin (3.5-5.0) g/dL Lipase (23-300) U/L Coronavirus (PCR) Not Detected (Not Detectd) Disposition Clinical Impression: Atypical chest pain Disposition: HOME SELF-CARE Condition: Fair Instructions (If sedation given, give patient instructions): Pneumonia (ED) Additional Instructions: Take antibiotics as directed. Take Tylenol for pain. Follow-up with your primary care doctor Sunday morning. Return to the emergency room for any worsening symptoms or shortness of breath. Prescriptions: Cefuroxime [Ceftin] 500 mg PO BID 10 Days #40 tab Azithromycin [Zithromax Z-pack (6 tabs)] 250 mg PO DIRECTED #6 tab Is patient prescribed a controlled substance at d/c from ED?: No Referrals: Lobo Anaya MD [Primary Care Provider] - 1-2 days Time of Disposition: 09:34
[2020-12-04 07:27] VITALS: RESP 20
[2020-12-04 07:31] LABS: Basophils % (A) 0 %; Eosinophils # (A) 0.2 k/uL (0-0.7); Eosinophils % (A) 3 %; HGB 15.8 gm/dL (13.0-17.5); Lymphocytes % (A) 12 %; MCH 30.6 pg (25.0-35.0); MCV 92.7 fL (80.0-100.0); Monocytes # (A) 0.5 k/uL (0-1.0); Monocytes % (A) 6 %; Neutrophils # (A) 6.7 k/uL (1.3-7.7); Neutrophils % (A) 78 %; Platelet Count 253 k/uL (150-450); RBC 5.17 m/uL (4.30-5.90); RDW 13.4 % (11.5-15.5); WBC 8.7 k/uL (3.8-10.6)
--- NOTE | 2020-12-04 07:37 | XR ---
EXAMINATION TYPE: XR chest 2V DATE OF EXAM: 12/04/2020 COMPARISON: 11/01/2010 INDICATION: Chest pain TECHNIQUE: Single frontal view of the chest is obtained. FINDINGS: The heart size is normal. The pulmonary vasculature is normal. Some patchy infiltrates in the right midlung the left lower lung field. Findings are nonspecific and could be related atelectasis or pneumonia. Follow-up be performed as clinically indicated. IMPRESSION: 1. Small patchy infiltrates within the right mid and left lower lung sandhu. Correlate for atelectasi s or pneumonia.
[2020-12-04 07:53] LABS: INR 2.8 (<1.2); Partial Thromboplastin Time 34.1 sec (22.0-30.0); Prothrombin Time 27.4 sec (9.0-12.0)
[2020-12-04 07:58] LABS: Albumin 3.6 g/dL (3.5-5.0); Magnesium 2.2 mg/dL (1.6-2.3); Potassium 4.3 mmol/L (3.5-5.1); Total Bilirubin 0.4 mg/dL (0.2-1.3); Total Protein 6.2 g/dL (6.3-8.2)
[2020-12-04 09:28] VITALS: PULSE 70
[2020-12-04] MEDS ORDERED: AZITHROMYCIN 500 MG TAB PO STA (09:28)
[2020-12-04] MEDS ORDERED: cefTRIAXone IN SWFI 1,000 MG/10 ML SYRINGE IVP STA (09:28)
[2020-12-04] MEDS ORDERED: SODIUM CHLORIDE 0.9% 500 ML 500 ML IV STA (09:33)
[2020-12-04 10:55] VITALS: BP 155/99; TEMP 98
== END 2020-12-04 11:17 | disposition home or self-care (01) ==
LOC: EC 06:47
DX: R07.89 Other chest pain (principal); I12.9 Hypertensive chronic kidney disease with stage 1 through stage 4 chronic kidney disease, or unspecified chronic kidney disease; N18.9 Chronic kidney disease, unspecified; I48.91 Unspecified atrial fibrillation; Z86.718 Personal history of other venous thrombosis and embolism; Z20.822 Contact with and (suspected) exposure to COVID-19; Z79.01 Long term (current) use of anticoagulants; Z88.0 Allergy status to penicillin; Z88.2 Allergy status to sulfonamides; Z90.49 Acquired absence of other specified parts of digestive tract; Z96.641 Presence of right artificial hip joint
CPT/HCPCS: 36415; 93005; 85379; 83880; 80053; 83690; 83735; 84484; 85025; 85610; 85730; 87635; 71046; 99285; 96374; J0696

== ENCOUNTER → 2020-12-23 | Outpatient (CLI) | payer MEDICARE ==
--- NOTE | 2020-12-23 13:13 | XR ---
EXAMINATION TYPE: XR chest 2V DATE OF EXAM: 12/23/2020 COMPARISON: 12/04/2020 HISTORY: Shortness of breath TECHNIQUE: Frontal and lateral views of the chest are obtained. FINDINGS: Scattered senescent parenchymal changes noted. Hyperinflation compatible with COPD. No evidence for infiltrate. No evidence for atelectasis. Heart size is stable. Mediastinal structures are stable and grossly unremarkable. No evidence for hilar prominence. Degenerative changes dorsal spine. IMPRESSION: 1. No evidence for acute pulmonary disease.
== END | disposition home or self-care (01) ==
LOC: RADXRMAIN 12:54
PROVIDERS: ATTEND Physician Assistant
DX: R06.02 Shortness of breath (principal)
CPT/HCPCS: 71046

== ENCOUNTER → 2021-10-26 | Outpatient (CLI) | payer MEDICARE ==
--- NOTE | 2021-10-26 17:07 | CA ---
Transthoracic Echo Report Name: Landon Sotomayor Age: 86 Gender: M : 1935 Exam Date: 10/26/2021 14:00 Exam Location: [facility] Ht (in): 70 Wt (lb): 225 Ordering Physician: Lobo Anaya MD Attending/Referring Phys: Lis Simmons PAC Clinical Account Specialist Anca Bhat RDCS Procedure CPT: Indications: R60.9 EDEMA Cardiac Hx: Technical Quality: Fair Contrast 1: Total Dose (mL): Contrast 2: Total Dose (mL): MEASUREMENTS (Male / Female) Normal Values 2D ECHO LV Diastolic Diameter PLAX 4.1 cm 4.2 - 5.9 / 3.9 - 5.3 cm LV Systolic Diameter PLAX 2.1 cm IVS Diastolic Thickness 1.4 cm 0.6 - 1.0 / 0.6 - 0.9 cm LVPW Diastolic Thickness 1.5 cm 0.6 - 1.0 / 0.6 - 0.9 cm LV Relative Wall Thickness 0.7 RV Internal Dim ED PLAX 3.4 cm LA Volume 47.2 cm??? 18 - 58 / 22 - 52 cm??? M-MODE Aortic Root Diameter MM 3.8 cm LA Systolic Diameter MM 4.2 cm LA Ao Ratio MM 1.1 AV Cusp Separation MM 2.5 cm DOPPLER AV Peak Velocity 198.3 cm/s AV Peak Gradient 15.7 mmHg LVOT Peak Velocity 110.2 cm/s LVOT Peak Gradient 4.9 mmHg MV Peak Velocity 125.7 cm/s MV Peak Gradient 6.3 mmHg MV Mean Velocity 76.9 cm/s MV Mean Gradient 2.7 mmHg MV Velocity Time Integral 43.9 cm MV Area PHT 2.4 cm??? Mitral E Point Velocity 107.8 cm/s Mitral A Point Velocity 119.0 cm/s Mitral E to A Ratio 0.9 MV Deceleration Time 253.1 ms MV E' Velocity 7.9 cm/s Mitral E to MV E' Ratio 13.7 TR Peak Velocity 263.2 cm/s TR Peak Gradient 27.7 mmHg Right Ventricular Systolic Press 31.8 mmHg FINDINGS Left Ventricle Moderately increased left ventricular wall thickness. Normal left ventricular systolic function with no obvious regional wall motion abnormalities. Left ventricular ejection fraction is estimated at 55-60 %. Right Ventricle Mild right ventricular dilatation. Right Atrium Right atrium not well visualized. Left Atrium Normal left atrial size. No evidence for an atrial septal defect. Mitral Valve Moderate mitral annular calcification. Mild mitral stenosis. Aortic Valve No aortic stenosis. Aortic valve sclerosis. Tricuspid Valve Mild tricuspid regurgitation. Pulmonic Valve Trace pulmonic regurgitation. Pericardium No pericardial effusion. Aorta Normal size aortic root and proximal ascending aorta. CONCLUSIONS Consent left ventricle hypertrophy with normal LV function My clinic calcification with restricted mitral leaflet mobility with mild mitral stenosis Previewed by: Dr. Manjinder Burgos MD (Electronically Signed) Final Date: 26 October 2021 17:06
== END | disposition home or self-care (01) ==
LOC: RADECHMAIN 13:53
PROVIDERS: ATTEND Pediatrics
DX: R60.9 Edema, unspecified (principal); I08.1 Rheumatic disorders of both mitral and tricuspid valves
CPT/HCPCS: 93306

== ENCOUNTER 2021-12-29 09:25 | Emergency (ER) | payer MEDICARE ==
[2021-12-29 09:43] VITALS: BP 120/72; PULSE 57; RESP 18; TEMP 97.6
[2021-12-29] MEDS ORDERED: HYDROcodone/APAP 7.5-325MG 1 EACH TAB PO ONE (11:29)
--- NOTE | 2021-12-29 11:42 | XR ---
EXAMINATION TYPE: XR Hip RT and AP Pelvis DATE OF EXAM: 12/29/2021 11:27 AM INDICATION: Patient age:Male; 86 years old; Reason for study: pain; PHH. COMPARISON: Left hip radiograph 05/06/2021, CT abdomen pelvis 10/28/2019, right hip radiograph 10/26/2018 . TECHNIQUE: The right hip was examined in the frontal and lateral projections and a AP pelvis. 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 Hardware appears intact with appro priate alignment. Similar heterotopic bone formation around the right hip joint. Periosteal reaction along the proximal diaphysis of the femur is unchanged. No acute fracture or dislocation. Diffuse bon e mineralization. Multilevel degenerative changes of visualized lumbar spine. Degenerative changes of the pubic symphysis with the apparent bony ankylosis is unchanged. Mild degenerative changes of both SI joints. Vascular sclerosis. IMPRESSION: 1. No acute osseous pathology. 2. 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 Hardware appears intact with appropriat e alignment.
[2021-12-29] MEDS ORDERED: ACET/COD 300 MG/30 MG STARTER PACK 6 TAB BTL PO STA (12:14)
--- NOTE | 2021-12-29 12:17 | ED ---
Lower Extremity Injury HPI - General Chief Complaint: Extremity Injury, Lower Stated Complaint: R hip & knee pain Time Seen by Provider: 12/29/21 10:41 Source: patient, family Mode of arrival: ambulatory Limitations: no limitations - History of Present Illness Initial Comments: Patient is an 86-year-old male with a past medical history of right hip repla cement in 2003 who presents to the emergency department with right ear pain. Patient states symptoms have been occurring for the past several months with worsening this week. Patient states it was very painful to get out of bed today and he felt that his hip was going to pop out of place. No radiation. Denies calf pain. Denies weakness, numbness, tingling. - Related Data Home Medications Medication Instructions Recorded Confirmed Multivitamin/Iron/Folic Acid 1 tab PO DAILY 07/06/14 10/28/19 [Centrum Complete Multivit Tab] Warfarin [Coumadin] 7.5 mg PO HS 11/01/16 10/28/19 Cholecalciferol [Vitamin D3 (25 1,000 unit PO DAILY 10/28/19 10/28/19 Mcg = 1000 Iu)] Verapamil [Isoptin] 80 mg PO QID 10/28/19 10/28/19 Previous Rx's Medication Instructions Recorded Cephalexin [Keflex] 500 mg PO Q6HR #28 cap 10/28/19 Azithromycin [Zithromax Z-pack (6 250 mg PO DIRECTED #6 tab 12/04/20 tabs)] Cefuroxime [Ceftin] 500 mg PO BID 10 Days #40 tab 12/04/20 Cyclobenzaprine [Flexeril] 5 mg PO BID PRN #15 tablet 12/29/21 Allergies Allergy/AdvReac Type Severity Reaction Status Date / Time Penicillins Allergy Rash/Hives Verified 12/29/21 09:43 Sulfa (Sulfonamide Allergy Unknown Verified 12/29/21 09:43 Antibiotics) Review of Systems ROS Statement: Those systems with pertinent positive or pertinent negative responses have been documented in the HPI. ROS Other: All systems not noted in ROS Statement are negative. Past Medical History Past Medical History: Atrial Fibrillation, Deep Vein Thrombosis (DVT), Eye Disorder, Hypertension Additional Past Medical History / Comment(s): DVT X3, DIVERTICULITIS, SHOE LIFT RT SHOE-NO BALANCE ISSUES,chris cataracts History of Any Multi-Drug Resistant Organisms: None Reported Past Surgical History: Adenoidectomy, Appendectomy, Cholecystectomy, Hernia Repair, Joint Replacement, Tonsillectomy Additional Past Surgical History / Comment(s): CHRIS INGUINAL HERNIAS, RT HIP REPLACEMENT. PER PT'S IN 2011 PT HAD BURST VESSEL THAT WENT TO BOWEL TOOK 3 SX TO REPAIR. HAD THE SX AT [facility] IN [facility] RT WRIST, [place] filter Past Anesthesia/Blood Transfusion Reactions: No Reported Reaction Past Psychological History: No Psychological Hx Reported Smoking Status: Never smoker Past Alcohol Use History: None Reported Past Drug Use History: None Reported - Past Family History Father Additional Family Medical History / Comment(s): AGE 96 HAD A HEART TRANSPLANT AT AGE 91 Mother Family Medical History: No Reported History General Exam Limitations: no limitations General appearance: alert, in no apparent distress Head exam: Present: atraumatic, normocephalic, normal inspection Respiratory exam: Present: normal lung sounds bilaterally. Absent: respiratory distress, wheezes, rales, rhonchi, stridor Cardiovascular Exam: Present: regular rate, normal rhythm, normal heart sounds. Absent: systolic murmur, diastolic murmur, rubs, gallop, clicks Right Hip exam: Present: normal inspection, full ROM, tenderness (laterally with deep palpation ). Absent: swelling, abrasion, ecchymosis, deformity, crepitus, dislocation Upper Leg exam: Present: normal inspection, full ROM. Absent: tenderness, swelling Knee exam: Present: normal inspection, full ROM. Absent: tenderness, swelling Course Vital Signs 12/29/21 09:39 Temperature 97.6 F Pulse Rate 57 L Respiratory 18 Rate Blood Pressure 120/72 O2 Sat by Pulse 96 Oximetry Medical Decision Making - Medical Decision Making Neville is an 86-year-old male who presents with acute on chronic right hip pain. Thorough history and examination were performed. There is tenderness with deep palpation of the lateral hip otherwise physical exam is unremarkable with no overlying abnormalities. Neurovascularly intact. Full strength. Right hip and pelvis x-ray negative for acute process. Patient does not have artillery specialist. He will be referred to artillery specialist for further evaluation and management. Will give Tylenol 3 starter pack for pain as well as muscle relaxer. Patient to follow-up with primary care provider. Dr. Harvey is my attending. Disposition Clinical Impression: Chronic right hip pain Disposition: HOME SELF-CARE Condition: Good Instructions (If sedation given, give patient instructions): Hip Pain (ED) Additional Instructions: Take medication as directed. Do not drive or operate machinery while taking Flexeril as it can make you sleepy. Follow-up with artillery specialist in 1-2 days. Continue to use walker at home. Sit down if you start to feel unstable in the hip. Return to the emergency department if you experience new, concerning, or worsening symptoms. Prescriptions: Cyclobenzaprine [Flexeril] 5 mg PO BID PRN #15 tablet PRN Reason: Muscle Spasm Is patient prescribed a controlled substance at d/c from ED?: No Referrals: Lobo Anaya MD [Primary Care Provider] - 1-2 days Joy Klein DO [Doctor of Osteopathic Medicine] - 1-2 days Time of Disposition: 12:16
== END 2021-12-29 12:38 | disposition home or self-care (01) ==
LOC: EC 09:25
DX: G89.29 Other chronic pain (principal); M25.551 Pain in right hip; M25.561 Pain in right knee; I10 Essential (primary) hypertension; Z86.79 Personal history of other diseases of the circulatory system; Z86.718 Personal history of other venous thrombosis and embolism; Z79.01 Long term (current) use of anticoagulants; Z88.0 Allergy status to penicillin; Z88.2 Allergy status to sulfonamides
CPT/HCPCS: 73502; 99284

== ENCOUNTER 2022-02-05 08:36 | Emergency (ER) | payer MEDICARE ==
[2022-02-05 08:42] VITALS: BP 154/79; PULSE 71; RESP 16; TEMP 97.6
--- NOTE | 2022-02-05 08:57 | ED ---
General Adult HPI - General Chief complaint: ENT Stated complaint: Ear ache Time Seen by Provider: 02/05/22 08:45 Source: patient, RN notes reviewed, old records reviewed Mode of arrival: ambulatory Limitations: no limitations - History of Present Illness Initial comments: This is an 86-year-old male who presents emergency Department complaining has bleeding out of his left ear. Patient states yesterday after using a Q-tip he started bleeding and it hasn't stopped yet. Patient states that all night long a little bit and he has Cotton in his ear but he pulsatile out there is bright red blood on the cot. Patient states he is on Coumadin he has had checked in quite a few months. Patient denies any other symptoms. Patient didn't think he scraped his ear but apparently he did. - Related Data Home Medications Medication Instructions Recorded Confirmed Multivitamin/Iron/Folic Acid 1 tab PO DAILY 07/06/14 10/28/19 [Centrum Complete Multivit Tab] Warfarin [Coumadin] 7.5 mg PO HS 11/01/16 10/28/19 Cholecalciferol [Vitamin D3 (25 1,000 unit PO DAILY 10/28/19 10/28/19 Mcg = 1000 Iu)] Verapamil [Isoptin] 80 mg PO QID 10/28/19 10/28/19 Previous Rx's Medication Instructions Recorded Cephalexin [Keflex] 500 mg PO Q6HR #28 cap 10/28/19 Azithromycin [Zithromax Z-pack (6 250 mg PO DIRECTED #6 tab 12/04/20 tabs)] Cefuroxime [Ceftin] 500 mg PO BID 10 Days #40 tab 12/04/20 Cyclobenzaprine [Flexeril] 5 mg PO BID PRN #15 tablet 12/29/21 Allergies Allergy/AdvReac Type Severity Reaction Status Date / Time Penicillins Allergy Rash/Hives Verified 02/05/22 08:42 Sulfa (Sulfonamide Allergy Unknown Verified 02/05/22 08:42 Antibiotics) Review of Systems ROS Statement: Those systems with pertinent positive or pertinent negative responses have been documented in the HPI. ROS Other: All systems not noted in ROS Statement are negative. Past Medical History Past Medical History: Atrial Fibrillation, Deep Vein Thrombosis (DVT), Eye Disorder, Hypertension Additional Past Medical History / Comment(s): DVT X3, DIVERTICULITIS, SHOE LIFT RT SHOE-NO BALANCE ISSUES,chris cataracts History of Any Multi-Drug Resistant Organisms: None Reported Past Surgical History: Adenoidectomy, Appendectomy, Cholecystectomy, Hernia Repair, Joint Replacement, Tonsillectomy Additional Past Surgical History / Comment(s): CHRIS INGUINAL HERNIAS, RT HIP REPLACEMENT. PER PT'S IN 2011 PT HAD BURST VESSEL THAT WENT TO BOWEL TOOK 3 SX TO REPAIR. HAD THE SX AT [facility] [place] [facility] RT WRIST, [place] filter Past Anesthesia/Blood Transfusion Reactions: No Reported Reaction Past Psychological History: No Psychological Hx Reported Smoking Status: Never smoker Past Alcohol Use History: None Reported Past Drug Use History: None Reported - Past Family History Father Additional Family Medical History / Comment(s): AGE 96 HAD A HEART TRANSPLANT AT AGE 91 Mother Family Medical History: No Reported History General Exam - General Exam Comments Initial Comments: GENERAL Patient is well-developed and well-nourished. Patient is in mild distress. EYES Patient's pupils are equal and round. Extraocular motion is intact EARS Left ear canal has an abrasion and it is bleeding very slowly. SKIN Unremarkable NEURO The patient is alert and oriented 3 PYSCH Patient has normal interpersonal interactions. MUSCULOSKELETAL All 4 extremities move HER range of motion Limitations: no limitations Course Vital Signs 02/05/22 08:40 Temperature 97.6 F Pulse Rate 71 Respiratory 16 Rate Blood Pressure 154/79 O2 Sat by Pulse 95 Oximetry Medical Decision Making - Medical Decision Making I'll use thrombin in the ear to slow down the bleeding. New para patient's INR 3.2 I told the patient and to follow-up with her primary medical care doctor if that is a little too high he can stop the medication for a day or 2. - Lab Data Result diagrams: 02/05/22 09:07 02/05/22 09:07 Lab Results 02/05/22 02/05/22 02/05/22 Range/Units 09:07 09:07 09:07 WBC 6.0 (3.8-10.6) k/uL RBC 4.95 (4.30-5.90) m/uL Hgb 14.3 (13.0-17.5) gm/dL Hct 45.3 (39.0-53.0) % MCV 91.6 (80.0-100.0) fL MCH 28.8 (25.0-35.0) pg MCHC 31.5 (31.0-37.0) g/dL RDW 13.3 (11.5-15.5) % Plt Count 219 (150-450) k/uL MPV 9.1 Neutrophils % 76 % Lymphocytes % 13 % Monocytes % 5 % Eosinophils % 3 % Basophils % 1 % Neutrophils # 4.6 (1.3-7.7) k/uL Lymphocytes # 0.8 L (1.0-4.8) k/uL Monocytes # 0.3 (0-1.0) k/uL Eosinophils # 0.2 (0-0.7) k/uL Basophils # 0.0 (0-0.2) k/uL PT 31.4 H (9.0-12.0) sec INR 3.2 H (<1.2) APTT 36.0 H (22.0-30.0) sec Sodium 139 (137-145) mmol/L Potassium 4.2 (3.5-5.1) mmol/L Chloride 103 (98-107) mmol/L Carbon Dioxide 25 (22-30) mmol/L Anion Gap 11 mmol/L BUN 28 H (9-20) mg/dL Creatinine 1.37 H (0.66-1.25) mg/dL Est GFR (CKD-EPI)AfAm 54 (>60 ml/min/1.73 sqM) Est GFR (CKD-EPI)NonAf 46 (>60 ml/min/1.73 sqM) Glucose 164 H (74-99) mg/dL Calcium 8.9 (8.4-10.2) mg/dL Total Bilirubin 0.6 (0.2-1.3) mg/dL AST 35 (17-59) U/L ALT 23 (4-49) U/L Alkaline Phosphatase 107 (38-126) U/L Total Protein 6.3 (6.3-8.2) g/dL Albumin 3.9 (3.5-5.0) g/dL Disposition Clinical Impression: Ear canal abrasion Disposition: HOME SELF-CARE Condition: Good Is patient prescribed a controlled substance at d/c from ED?: No Referrals: Lobo Anaya MD [Primary Care Provider] - 1-2 days Time of Disposition: 10:14
[2022-02-05] MEDS ORDERED: THROMBIN (BOVINE) 5,000 UNIT VIAL TOPICAL ONE (09:15)
[2022-02-05 09:16] LABS: Basophils % (A) 1 %; Eosinophils # (A) 0.2 k/uL (0-0.7); Eosinophils % (A) 3 %; HCT 45.3 % (39.0-53.0); HGB 14.3 gm/dL (13.0-17.5); Lymphocytes # (A) 0.8 k/uL (1.0-4.8); Lymphocytes % (A) 13 %; MCH 28.8 pg (25.0-35.0); MCHC 31.5 g/dL (31.0-37.0); MCV 91.6 fL (80.0-100.0); Mean Platelet Volume 9.1; Monocytes # (A) 0.3 k/uL (0-1.0); Monocytes % (A) 5 %; Neutrophils # (A) 4.6 k/uL (1.3-7.7); Neutrophils % (A) 76 %; Platelet Count 219 k/uL (150-450); RBC 4.95 m/uL (4.30-5.90); RDW 13.3 % (11.5-15.5)
[2022-02-05 09:25] LABS: INR 3.2 (<1.2); Prothrombin Time 31.4 sec (9.0-12.0)
[2022-02-05 09:30] LABS: Albumin 3.9 g/dL (3.5-5.0); Calcium 8.9 mg/dL (8.4-10.2); Potassium 4.2 mmol/L (3.5-5.1); Total Bilirubin 0.6 mg/dL (0.2-1.3); Total Protein 6.3 g/dL (6.3-8.2)
== END 2022-02-05 10:00 | disposition home or self-care (01) ==
LOC: EC 08:36
DX: S00.412A Abrasion of left ear, initial encounter (principal); I10 Essential (primary) hypertension; I48.91 Unspecified atrial fibrillation; Z88.0 Allergy status to penicillin; Z88.2 Allergy status to sulfonamides; X58.XXXA Exposure to other specified factors, initial encounter
CPT/HCPCS: 36415; 80053; 85025; 85610; 85730; 99283

== ENCOUNTER 2022-09-09 15:28 | Emergency (ER) | payer MEDICARE ==
[2022-09-09] MEDS ORDERED: SODIUM CHLORIDE 0.9% 500 ML 500 ML IV STA ×2 (15:31→18:24)
[2022-09-09 15:51] LABS: Glucose,Whole Blood 112 mg/dL (70-110)
--- NOTE | 2022-09-09 15:53 | ED ---
Fall HPI - General Chief Complaint: Fall Stated Complaint: Fall Time Seen by Provider: 09/09/22 15:29 Source: EMS, RN notes reviewed, old records reviewed Mode of arrival: EMS Limitations: no limitations - History of Present Illness Initial Comments: This is a 86-year-old male to the ER today he is presented today for evaluation regarding fall. Patient is on Coumadin for atrial fibrillation. Patient's on stepstool in his kitchen patient to get something out of the car he was backing down missed the second rung of the ladder and went to the ground. Patient having unclear history of what happened after that. He is not complaining of headache or neck pain. Does complain of some mid back pain right-sided back pain and pain down his right flank. No abdominal pain no chest pain no shortness of breath. Patient had no headache chest pain shortness breath or abdominal pain prior to going up the ladder. Patient's been feeling well as of late MD Complaint: fall, other (Fall from height onto) -: hour(s) (Patient's fall occurred hours prior to arrival, did attempt to call people to come help with the patient now presents DF for persistent symptoms) Fall From: from height (distance) When Fall Occurred: 1-3 hours [employer] Fall Witnessed: yes, by family Place Fall Occurred: home Loss of Consciousness: none Prolonged Down Time?: no Symptoms Prior to Fall: none, lightheadedness Location: head, back Location - Extremities: Right: Thigh Severity: moderate Severity scale (1-10): 4 Quality: sharp Context: tripped/slipped Associated Symptoms: denies - Related Data Home Medications Medication Instructions Recorded Confirmed Multivitamin/Iron/Folic Acid 1 tab PO DAILY 07/06/14 09/09/22 [Centrum Complete Multivit Tab] Warfarin [Coumadin] 7.5 mg PO SUTUTHSA 11/01/16 09/09/22 Verapamil [Isoptin] 80 mg PO QID 10/28/19 09/09/22 Furosemide [Lasix] 20 mg PO DAILY@1200 09/09/22 09/09/22 Furosemide [Lasix] 40 mg PO W/BRKFST 09/09/22 09/09/22 Warfarin [Coumadin] 5 mg PO MOWEFR 09/09/22 09/09/22 Allergies Allergy/AdvReac Type Severity Reaction Status Date / Time Penicillins Allergy Unknown Verified 09/09/22 17:18 Childhood Sulfa (Sulfonamide Allergy Unknown Verified 09/09/22 17:18 Antibiotics) Childhood Review of Systems ROS Statement: Those systems with pertinent positive or pertinent negative responses have been documented in the HPI. ROS Other: All systems not noted in ROS Statement are negative. Past Medical History Past Medical History: Atrial Fibrillation, Deep Vein Thrombosis (DVT), Eye Disorder, Hypertension Additional Past Medical History / Comment(s): DVT X3, DIVERTICULITIS, SHOE LIFT RT SHOE-NO BALANCE ISSUES,chris cataracts History of Any Multi-Drug Resistant Organisms: None Reported Past Surgical History: Adenoidectomy, Appendectomy, Cholecystectomy, Hernia Repair, Joint Replacement, Tonsillectomy Additional Past Surgical History / Comment(s): CHRIS INGUINAL HERNIAS, RT HIP REPLACEMENT. PER PT'S IN 2011 PT HAD BURST VESSEL THAT WENT TO BOWEL TOOK 3 SX TO REPAIR. HAD THE SX AT [facility] IN [facility].ORIF RT WRIST, [place] filter Past Anesthesia/Blood Transfusion Reactions: No Reported Reaction Past Psychological History: No Psychological Hx Reported Smoking Status: Never smoker Past Alcohol Use History: None Reported Past Drug Use History: None Reported - Past Family History Father Additional Family Medical History / Comment(s): AGE 96 HAD A HEART TRANSPLANT AT AGE 91 Mother Family Medical History: No Reported History General Exam Limitations: no limitations General appearance: alert, in no apparent distress Head exam: Present: atraumatic, normocephalic, normal inspection Eye exam: Present: normal appearance, PERRL, EOMI. Absent: scleral icterus, conjunctival injection, periorbital swelling ENT exam: Present: normal exam, mucous membranes moist Neck exam: Present: normal inspection. Absent: tenderness, meningismus, lymphadenopathy Respiratory exam: Present: normal lung sounds bilaterally. Absent: respiratory distress, wheezes, rales, rhonchi, stridor Cardiovascular Exam: Present: regular rate, normal rhythm, normal heart sounds. Absent: systolic murmur, diastolic murmur, rubs, gallop, clicks GI/Abdominal exam: Present: soft, normal bowel sounds. Absent: distended, tenderness, guarding, rebound, rigid Extremities exam: Present: normal inspection, full ROM, normal capillary refill. Absent: tenderness, pedal edema, joint swelling, calf tenderness Back exam: Present: normal inspection Neurological exam: Present: alert, oriented X3, CN II-XII intact Psychiatric exam: Present: normal affect, normal mood Skin exam: Present: warm, dry, intact, normal color. Absent: rash Course Vital Signs 09/09/22 09/09/22 09/09/22 15:30 15:40 15:50 Temperature 98.1 F 98.0 F Pulse Rate 90 91 93 Respiratory 19 20 19 Rate Blood Pressure 162/92 146/90 150/88 O2 Sat by Pulse 96 94 L 93 L Oximetry 09/09/22 09/09/22 09/09/22 16:00 16:10 16:30 Temperature Pulse Rate 91 89 93 Respiratory 22 17 21 Rate Blood Pressure 147/93 144/91 157/94 O2 Sat by Pulse 92 L 94 L 94 L Oximetry 09/09/22 09/09/22 09/09/22 16:45 16:51 17:00 Temperature Pulse Rate 94 94 99 Respiratory 24 20 18 Rate Blood Pressure 157/94 146/97 159/108 O2 Sat by Pulse 93 L 93 L 94 L Oximetry 09/09/22 09/09/22 09/09/22 17:15 17:30 17:45 Temperature Pulse Rate 97 98 99 Respiratory 17 19 16 Rate Blood Pressure 160/99 168/100 176/102 O2 Sat by Pulse 93 L 93 L 94 L Oximetry 09/09/22 09/09/22 09/09/22 18:00 18:10 18:15 Temperature 97.6 F 97.6 F Pulse Rate 97 98 94 Respiratory 18 17 18 Rate Blood Pressure 173/105 158/101 152/99 O2 Sat by Pulse 93 L 94 L 95 Oximetry 09/09/22 09/09/22 09/09/22 18:45 19:00 19:10 Temperature 97.6 F Pulse Rate 93 96 95 Respiratory 19 16 17 Rate Blood Pressure 159/99 164/115 164/95 O2 Sat by Pulse 95 96 96 Oximetry 09/09/22 09/09/22 09/09/22 19:15 19:30 19:38 Temperature Pulse Rate 95 95 95 Respiratory 20 17 17 Rate Blood Pressure 156/104 148/98 148/98 O2 Sat by Pulse 97 97 98 Oximetry 09/09/22 09/09/22 09/09/22 19:45 20:00 20:30 Temperature Pulse Rate 97 97 100 Respiratory 20 18 17 Rate Blood Pressure 148/98 151/97 163/103 O2 Sat by Pulse 98 98 97 Oximetry 09/09/22 09/09/22 21:00 21:47 Temperature Pulse Rate 99 Respiratory 17 Rate Blood Pressure 163/102 159/99 O2 Sat by Pulse 97 Oximetry - Reevaluation(s) Reevaluation #1: 09/09/22 16:11 Medical records reviewed 09/09/22 16:11 Level II trauma paged prehospital based on mechanism of injury Reevaluation #2: 09/09/22 16:11 Patient symptoms are improved Reevaluation #3: 09/09/22 16:11 Patient informed results questions answered Reevaluation #4: 09/09/22 17:01 Was pt. sent in by a medical professional or institution? @ -no Did you speak to anyone other than the patient for history? @ -no Did you review nursing and triage notes? @ -agree Were old charts reviewed? @ -no Differential Diagnosis? @ -prior EKG interpreted by me (3pts min.)? @ -yes X-rays interpreted by me (1pt min.)? @ -yes CT interpreted by me (1pt min.)? @ -no U/S interpreted by me (1pt. min.)? @ -no What testing was considered but not performed? (CT, X-rays, U/S, labs)? Why? @ -no What meds were considered but not given? Why? @ -no Did you discuss the management of the patient with other professionals? @ -no Did you reconcile home meds? @ -no Was smoking cessation discussed for >3mins.? @ -no Was critical care preformed (if so, how long)? @ -no Were there social determinants of health that impacted care today? How? (Homelessness, low income, unemployed, alcoholism, drug addiction, transportation, low edu. Level, literacy, decrease access to med. care, custodial, rehab)? @ -no Was there de-escalation of care discussed even if they declined? (Discuss DNR or withdrawal of care, Hospice)? @ -no What co-morbidities impacted this encounter? (DM, HTN, Smoking, COPD, CAD, Cancer, CVA, Hep., AIDS, mental health diagnosis, sleep apnea, morbid obesity)? @ -none Was patient admitted / discharged? @ -dc Undiagnosed new problem with uncertain prognosis? @ -no Drug Therapy requiring intensive monitoring for toxicity (Heparin, Nitro, Insulin, Cardizem)? @ -no Were any procedures done? @ -no Diagnosis/symptom? @ -Fall on blood thinner, severe back contusion, head injury Acute, or Chronic, or Acute on Chronic? @ -acute Uncomplicated (without systemic symptoms) or Complicated (systemic symptoms)? @ -uncomplicated Side effects of treatment? @ -no Exacerbation, Progression, or Severe Exacerbation] @ -no Poses a threat to life or bodily function? @ -yes Medical Decision Making - Medical Decision Making 86 male from fall from standing, head injury back pain severe rib pain severe chest and back contusion back contusion secondary to fall fall from standing with head injury, patient is on blood thinners trauma code was activated but no acute traumatic findings are found patient given pain control can be discharged home - Lab Data Result diagrams: 09/09/22 15:40 09/09/22 15:40 Lab Results 09/09/22 09/09/22 09/09/22 Range/Units 15:36 15:40 15:40 WBC 12.8 H (3.8-10.6) k/uL RBC 4.89 (4.30-5.90) m/uL Hgb 14.5 (13.0-17.5) gm/dL Hct 43.7 (39.0-53.0) % MCV 89.4 (80.0-100.0) fL MCH 29.6 (25.0-35.0) pg MCHC 33.1 (31.0-37.0) g/dL RDW 14.1 (11.5-15.5) % Plt Count 246 (150-450) k/uL MPV 8.5 Neutrophils % 88 % Lymphocytes % 5 % Monocytes % 4 % Eosinophils % 1 % Basophils % 0 % Neutrophils # 11.3 H (1.3-7.7) k/uL Lymphocytes # 0.7 L (1.0-4.8) k/uL Monocytes # 0.6 (0-1.0) k/uL Eosinophils # 0.1 (0-0.7) k/uL Basophils # 0.0 (0-0.2) k/uL PT 20.5 H (9.0-12.0) sec INR 2.1 H (<1.2) APTT 29.4 (22.0-30.0) sec Sodium (137-145) mmol/L Potassium (3.5-5.1) mmol/L Chloride (98-107) mmol/L Carbon Dioxide (22-30) mmol/L Anion Gap mmol/L BUN (9-20) mg/dL Creatinine (0.66-1.25) mg/dL Est GFR (CKD-EPI)AfAm (>60 ml/min/1.73 sqM) Est GFR (CKD-EPI)NonAf (>60 ml/min/1.73 sqM) Glucose (74-99) mg/dL POC Glucose (mg/dL) (70-110) mg/dL POC Glu Grocery Specialist ID Calcium (8.4-10.2) mg/dL Total Bilirubin (0.2-1.3) mg/dL AST (17-59) U/L ALT (4-49) U/L Alkaline Phosphatase (38-126) U/L Troponin I (0.000-0.034) ng/mL Total Protein (6.3-8.2) g/dL Albumin (3.5-5.0) g/dL Urine Opiates Screen (NotDetected) Ur Oxycodone Screen (NotDetected) Urine Methadone Screen (NotDetected) Ur Propoxyphene Screen (NotDetected) Ur Barbiturates Screen (NotDetected) U Tricyclic Antidepress (NotDetected) Ur Phencyclidine Scrn (NotDetected) Ur Amphetamines Screen (NotDetected) U Methamphetamines Scrn (NotDetected) U Benzodiazepines Scrn (NotDetected) Urine Cocaine Screen (NotDetected) U Marijuana (THC) Screen (NotDetected) Serum Alcohol mg/dL Blood Type A Positive Blood Type Recheck A Pos Bld Type Recheck Status No Antibody Screen NEGATIVE Spec Expiration Date 09/12/2022233909/09/22 09/09/22 09/09/22 Range/Units 15:40 15:40 15:40 WBC (3.8-10.6) k/uL RBC (4.30-5.90) m/uL Hgb (13.0-17.5) gm/dL Hct (39.0-53.0) % MCV (80.0-100.0) fL MCH (25.0-35.0) pg MCHC (31.0-37.0) g/dL RDW (11.5-15.5) % Plt Count (150-450) k/uL MPV Neutrophils % % Lymphocytes % % Monocytes % % Eosinophils % % Basophils % % Neutrophils # (1.3-7.7) k/uL Lymphocytes # (1.0-4.8) k/uL Monocytes # (0-1.0) k/uL Eosinophils # (0-0.7) k/uL Basophils # (0-0.2) k/uL PT (9.0-12.0) sec INR (<1.2) APTT (22.0-30.0) sec Sodium 141 (137-145) mmol/L Potassium 4.5 (3.5-5.1) mmol/L Chloride 104 (98-107) mmol/L Carbon Dioxide 28 (22-30) mmol/L Anion Gap 9 mmol/L BUN 31 H (9-20) mg/dL Creatinine 1.57 H (0.66-1.25) mg/dL Est GFR (CKD-EPI)AfAm 46 (>60 ml/min/1.73 sqM) Est GFR (CKD-EPI)NonAf 39 (>60 ml/min/1.73 sqM) Glucose 123 H (74-99) mg/dL POC Glucose (mg/dL) (70-110) mg/dL POC Glu Grocery Specialist ID Calcium 8.8 (8.4-10.2) mg/dL Total Bilirubin 0.7 (0.2-1.3) mg/dL AST 29 (17-59) U/L ALT 24 (4-49) U/L Alkaline Phosphatase 109 (38-126) U/L Troponin I <0.012 (0.000-0.034) ng/mL Total Protein 6.6 (6.3-8.2) g/dL Albumin 3.9 (3.5-5.0) g/dL Urine Opiates Screen Not Detected (NotDetected) Ur Oxycodone Screen Not Detected (NotDetected) Urine Methadone Screen Not Detected (NotDetected) Ur Propoxyphene Screen Not Detected (NotDetected) Ur Barbiturates Screen Not Detected (NotDetected) U Tricyclic Antidepress Not Detected (NotDetected) Ur Phencyclidine Scrn Not Detected (NotDetected) Ur Amphetamines Screen Not Detected (NotDetected) U Methamphetamines Scrn Not Detected (NotDetected) U Benzodiazepines Scrn Not Detected (NotDetected) Urine Cocaine Screen Not Detected (NotDetected) U Marijuana (THC) Screen Not Detected (NotDetected) Serum Alcohol <10 mg/dL Blood Type Blood Type Recheck Bld Type Recheck Status Antibody Screen Spec Expiration Date 09/09/22 Range/Units 15:49 WBC (3.8-10.6) k/uL RBC (4.30-5.90) m/uL Hgb (13.0-17.5) gm/dL Hct (39.0-53.0) % MCV (80.0-100.0) fL MCH (25.0-35.0) pg MCHC (31.0-37.0) g/dL RDW (11.5-15.5) % Plt Count (150-450) k/uL MPV Neutrophils % % Lymphocytes % % Monocytes % % Eosinophils % % Basophils % % Neutrophils # (1.3-7.7) k/uL Lymphocytes # (1.0-4.8) k/uL Monocytes # (0-1.0) k/uL Eosinophils # (0-0.7) k/uL Basophils # (0-0.2) k/uL PT (9.0-12.0) sec INR (<1.2) APTT (22.0-30.0) sec Sodium (137-145) mmol/L Potassium (3.5-5.1) mmol/L Chloride (98-107) mmol/L Carbon Dioxide (22-30) mmol/L Anion Gap mmol/L BUN (9-20) mg/dL Creatinine (0.66-1.25) mg/dL Est GFR (CKD-EPI)AfAm (>60 ml/min/1.73 sqM) Est GFR (CKD-EPI)NonAf (>60 ml/min/1.73 sqM) Glucose (74-99) mg/dL POC Glucose (mg/dL) 112 H (70-110) mg/dL POC Glu Grocery Specialist ID Potthoff, Lora Calcium (8.4-10.2) mg/dL Total Bilirubin (0.2-1.3) mg/dL AST (17-59) U/L ALT (4-49) U/L Alkaline Phosphatase (38-126) U/L Troponin I (0.000-0.034) ng/mL Total Protein (6.3-8.2) g/dL Albumin (3.5-5.0) g/dL Urine Opiates Screen (NotDetected) Ur Oxycodone Screen (NotDetected) Urine Methadone Screen (NotDetected) Ur Propoxyphene Screen (NotDetected) Ur Barbiturates Screen (NotDetected) U Tricyclic Antidepress (NotDetected) Ur Phencyclidine Scrn (NotDetected) Ur Amphetamines Screen (NotDetected) U Methamphetamines Scrn (NotDetected) U Benzodiazepines Scrn (NotDetected) Urine Cocaine Screen (NotDetected) U Marijuana (THC) Screen (NotDetected) Serum Alcohol mg/dL Blood Type Blood Type Recheck Bld Type Recheck Status Antibody Screen Spec Expiration Date - EKG Data -: EKG Interpreted by Me (EKG is sinus 88 NE 184 QRS 124 QTC 421) - Radiology Data Radiology results: report reviewed (CT of brain C-spine x-ray chest pelvis, CT chest 7 pelvis is negative for significant triadic injury), image reviewed Disposition Clinical Impression: Fall, Head injury, Back contusion Disposition: HOME SELF-CARE Condition: Good Instructions (If sedation given, give patient instructions): Fall Prevention for Older Adults (ED), Head Injury (ED), Back Pain (ED) Is patient prescribed a controlled substance at d/c from ED?: No Referrals: None,Stated [REFERRING] - 1-2 days Time of Disposition: 18:10
[2022-09-09 16:02] LABS: Basophils % (A) 0 %; Eosinophils # (A) 0.1 k/uL (0-0.7); Eosinophils % (A) 1 %; HCT 43.7 % (39.0-53.0); HGB 14.5 gm/dL (13.0-17.5); Lymphocytes # (A) 0.7 k/uL (1.0-4.8); Lymphocytes % (A) 5 %; MCH 29.6 pg (25.0-35.0); MCHC 33.1 g/dL (31.0-37.0); MCV 89.4 fL (80.0-100.0); Mean Platelet Volume 8.5; Monocytes # (A) 0.6 k/uL (0-1.0); Monocytes % (A) 4 %; Neutrophils # (A) 11.3 k/uL (1.3-7.7); Neutrophils % (A) 88 %; Platelet Count 246 k/uL (150-450); RBC 4.89 m/uL (4.30-5.90); RDW 14.1 % (11.5-15.5); WBC 12.8 k/uL (3.8-10.6)
[2022-09-09 16:06] LABS: INR 2.1 (<1.2); Partial Thromboplastin Time 29.4 sec (22.0-30.0); Prothrombin Time 20.5 sec (9.0-12.0)
--- NOTE | 2022-09-09 16:18 | CT ---
EXAMINATION TYPE: CT brain raúl garcía DATE OF EXAM: 09/09/2022 COMPARISON: None HISTORY: fall on blood thinners CT DLP: 1431 mGycm, Automated exposure control for dose reduction was used. CONTRAST: Patient injected with 0 mL of Isovue 300. CT of the brain is performed utilizing 3 mm thick sections through the posterior fossa and 3 mm thick sections through the remaining calvarium. Study is performed within 24 hours of arrival to the hospital. No abnormal hyperdensity is present to suggest an acute intracranial hemorrhage. No mass lesion is evident. No acute infarcts are evident. Some minimal hypodensity in the periventricular white matter, likely on the basis of chronic white matter ischemic changes. Ventricles and sulci are appropriate for the patient age. Paranasal sinuses and mastoid air cells within the [id number] are clear. IMPRESSIONS: 1. No acute intracranial hemorrhage. 2. No acute intracranial processes. Follow-up MRI can be performed as clinically indicated. CT cervical spine. COMPARISON: None CT of the cervical spine is performed in the axial plane at 2 mm thick sections. Reconstructed image s in the coronal, and sagittal plane are reviewed on the computer. No acute fractures are evident. Vertebral body alignment is normal. There is loss of disc height throughout the cervical spine. Mild spondylosis is present. Some posteri or endplate spurring is present C4-5 C5-6. Vertebral body heights are preserved. No spinal canal stenosis is evident. Uncovertebral joint hypertrophy and endplate spurring at C3-4 has moderate right paracentral fecal sa c impression and severe right foraminal stenosis. Uncovertebral joint hypertrophy at C4-5 has severe bilateral foraminal stenosis. Endplate spurring has moderate anterior thecal sac compression C5-6. No AP spinal canal stenosis is present at 1.0 cm. Left paracentral endplate spurring at C6-7 has mild a nterior thecal sac compression. Uncovertebral joint hypertrophy is moderate left foraminal stenosis. IMPRESSIONS: 1. Degenerative disc changes throughout the cervical spine. 2. Uncovertebral joint hypertrophy with foraminal stenosis appears greatest at C4-5. 3. Endplate spurring at C5-6 C6-7 has mild to moderate anterior thecal sac compression without stenos is.
[2022-09-09 16:22] LABS: ALT 24 U/L (4-49); AST 29 U/L (17-59); African American GFR (CKD) 46 (>60 ml/min/1.73 sqM); Albumin 3.9 g/dL (3.5-5.0); Alcohol <10 mg/dL; Alkaline Phosphatase 109 U/L (38-126); Anion Gap 9 mmol/L; Blood Urea Nitrogen 31 mg/dL (9-20); Calcium 8.8 mg/dL (8.4-10.2); Carbon Dioxide 28 mmol/L (22-30); Chloride 104 mmol/L (98-107); Glucose 123 mg/dL (74-99); Non-African American GFR(CKD) 39 (>60 ml/min/1.73 sqM); Potassium 4.5 mmol/L (3.5-5.1); Sodium 141 mmol/L (137-145); Total Bilirubin 0.7 mg/dL (0.2-1.3); Total Protein 6.6 g/dL (6.3-8.2)
[2022-09-09 16:25] LABS: Amphetamine Screen,Urine Not Detected (NotDetected); Barbiturate Screen,Urine Not Detected (NotDetected); Benzodiazepines Screen,Urine Not Detected (NotDetected); Cocaine Screen,Urine Not Detected (NotDetected); Methadone Screen, Urine Not Detected (NotDetected); Opiate Screen,Urine Not Detected (NotDetected); Oxycodone Screen, Urine Not Detected (NotDetected); Phencyclidine Screen,Urine Not Detected (NotDetected); Tricyclic Antidepressant,Urine Not Detected (NotDetected); Urn Cannabinoid Scrn Not Detected (NotDetected)
--- NOTE | 2022-09-09 16:47 | XR ---
EXAMINATION TYPE: XR pelvis AP view DATE OF EXAM: 09/09/2022 COMPARISON: None HISTORY: Trauma TECHNIQUE: AP pelvis FINDINGS: Right femoral prosthesis is present. Symphysis pubis may have some fusion. Thank you displa lynn fracture is not identified. Subtle occult fracture of the superior left pubic symphysis is not ex cluded. Correlate with location of the patient's pain. IMPRESSION: 1. Subtle cortical changes along the superior left pubic symphysis. Correlate with location of the p atient's pain. Occult fracture could be considered
[2022-09-09] MEDS ORDERED: MORPHINE SULFATE 4 MG/ML SYRINGE IVP STA (16:52)
[2022-09-09 18:09] VITALS: TEMP 97.6
--- NOTE | 2022-09-09 19:05 | CT ---
EXAMINATION TYPE: CT ChestAbdPelvis w con DATE OF EXAM: 09/09/2022 COMPARISON: None HISTORY: pain after fall. P2T CT DLP: 2006.5 mGycm CONTRAST: Contrast enhanced Trauma CT of the Chest, Abdomen and Pelvis is performed with IV Contrast, patient i njected with 75 mL of Isovue 300. Chest: LUNGS: There is no evidence for pneumothorax. The lungs are clear and free of focal contusion. Basil ar linear atelectasis. No pleural effusion MEDIASTINUM: Thoracic aorta is of normal caliber without CT evidence to suggest traumatic induced ao rtic injury. No mediastinal fluid or blood. No pericardial fluid or cardia abnormality. HILAR STRUCTURES: No evidence for mass. No hilar adenopathy is appreciated. OTHER: Focal eventration left hemidiaphragm. OSSEOUS: No displaced osseous fractures identified. Fusion of right ribs [address] ABDOMEN AND PELVIS FINDINGS: LIVER/GB: No focal laceration, contusion or subcapsular hemorrhage. The gallbladder surgically abse nt. No space occupying hepatic lesion. Biliary tree is of normal caliber. PANCREAS: No evidence for transection. No inflammation. No distinct mass. SPLEEN: No focal laceration, contusion or subcapsular hemorrhage. ADRENALS: No hemorrhage. No nodule. No thickening. KIDNEYS/BLADDER: No focal laceration, contusion or subcapsular hemorrhage. No hydronephrosis. No n ephrolithiasis. Renal cortical cysts noted. BOWEL: Bowel is intact. No evidence for pneumoperitoneum. GENITAL ORGANS: No gross abnormality. LYMPH NODES: No greater than 1cm abdominal or pelvic lymph nodes are appreciated. AORTA: No traumatic aortic injury visualized. OSSEOUS STRUCTURES: Nonacute loss of height involving superior endplate of L2. Mild to moderate multi level degenerative disc space narrowing. Right hip prosthesis. OTHER: No evidence for hemoperitoneum. IMPRESSION: 1. No evidence for traumatic injury to the chest. 2. No evidence for traumatic injury to the abdomen or pelvis.
[2022-09-09] MEDS ORDERED: ACET/COD 300 MG/30 MG STARTER PACK 6 TAB BTL PO STA (20:57)
[2022-09-09] MEDS ORDERED: IBUPROFEN 600 MG STARTER PACK 4 TAB BTL PO STA (20:57)
[2022-09-09] MEDS ORDERED: HYDROmorphone 1 MG/ML 1 ML SYRINGE IVP STA (21:10)
[2022-09-09] MEDS ORDERED: KETOROLAC 15 MG/ML 1 ML VIAL IVP STA (21:10)
[2022-09-09 21:27] VITALS: PULSE 99; RESP 17
[2022-09-09 21:48] VITALS: BP 159/99
--- NOTE | 2022-09-11 07:28 | XR ---
EXAMINATION TYPE: XR chest 1V portable DATE OF EXAM: 09/09/2022 COMPARISON: 12/23/2020 INDICATION: Trauma TECHNIQUE: Single frontal view of the chest is obtained. FINDINGS: The heart size is normal. The pulmonary vasculature is normal. The lungs are clear. No pneumothorax is evident. There is elevation of the left diaphragm. IMPRESSION: 1. No acute pulmonary process.
== END 2022-09-09 21:48 | disposition home or self-care (01) ==
LOC: EC 15:28
DX: S20.229A Contusion of unspecified back wall of thorax, initial encounter (principal); S09.90XA Unspecified injury of head, initial encounter; I48.91 Unspecified atrial fibrillation; I10 Essential (primary) hypertension; Z86.718 Personal history of other venous thrombosis and embolism; Z88.0 Allergy status to penicillin; Z88.2 Allergy status to sulfonamides; Z79.01 Long term (current) use of anticoagulants; Z79.899 Other long term (current) drug therapy; W17.89XA Other fall from one level to another, initial encounter
CPT/HCPCS: 36415; 93005; 86900; 86901; 80053; 84484; 85025; 85610; 85730; 86850; 80306; 72170; 71045; 72125; 70450; 71260; 74177; 99285; 96375 ×2; 96374; 96361 ×2; G0480; J2270; J1170; J1885; Q9967; 80320

== ENCOUNTER → 2022-12-28 | Outpatient (CLI) | payer MEDICARE | END | disposition home or self-care (01) | LOC: LABWHC1 10:42 | PROVIDERS: ATTEND Orthopaedic Surgery | DX: M25.551 Pain in right hip (principal); S32.89XA Fracture of other parts of pelvis, initial encounter for closed fracture; S72.101A Unspecified trochanteric fracture of right femur, initial encounter for closed fracture; X58.XXXA Exposure to other specified factors, initial encounter | CPT/HCPCS: 36415; 85652; 86140 ==

== ENCOUNTER → 2023-01-03 | Outpatient (CLI) | payer MEDICARE ==
--- NOTE | 2023-01-03 13:04 | CT ---
EXAMINATION TYPE: CT pelvis wo con, CT hip RT wo con CT DLP: 595.9 (accession [id number]), 863.8 (accession [id number]) mGycm, Automated exposure control for dose reduction was used. DATE OF EXAM: 01/03/2023 12:51 PM COMPARISON: CT chest abdomen pelvis 09/09/2022 CLINICAL INDICATION:Male, 87 years old with history of S32.89XA; pelvic pain (accession [id number]), ri ght hip pain (accession [id number]) TECHNIQUE: Standard CT of the pelvis and right hip without IV or oral contrast. Lack of IV or oral contrast limits evaluation of solid and hollow organ viscera. Coronal and sagittal reformats were per formed. 3-D reformat was created on a separate workstation. FINDINGS: BLADDER: Evaluation is limited due to streak artifact from hip prosthesis. REPRODUCTIVE: Prostate is enlarged in size measuring 6.0 cm in transverse dimension. Coarse central p rostate calcifications noted. BOWEL: Distal colonic diverticulosis without evidence for acute diverticulitis. No evidence of bowel obstruction. PERITONEUM: No evidence of pneumoperitoneum or free fluid. VASCULATURE: Mild atherosclerotic calcifications are present throughout the abdominal aorta and its b ranches. No evidence of aortic aneurysm. MUSCULOSKELETAL: No acute osseous abnormalities. Pubic rami fracture. Remote pubic symphysis fracture with heterotopic ossification anteriorly. 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 Hardware appears intact without surrounding lucency to sugges t loosening. No joint effusions. Moderate degenerative changes of the visualized lower lumbar spine. LYMPH NODES: No gross evidence for lymphadenopathy. SOFT TISSUE/ABDOMINAL WALL: Fat filled left inguinal hernia containing trace fluid. IMPRESSION: 1. No acute fracture. 2. Postsurgical changes from right hip arthroplasty. Hardware appears intact. 3. Remote fractures of the left inferior pubic ramus and pubic symphysis. 4. Distal colonic diverticulosis without evidence for acute diverticulitis. 5. Prostatomegaly.
== END | disposition home or self-care (01) ==
LOC: RADCTMAIN 11:41
PROVIDERS: ATTEND Orthopaedic Surgery
DX: S32.89XA Fracture of other parts of pelvis, initial encounter for closed fracture (principal); S72.101A Unspecified trochanteric fracture of right femur, initial encounter for closed fracture; N40.0 Benign prostatic hyperplasia without lower urinary tract symptoms; K57.30 Diverticulosis of large intestine without perforation or abscess without bleeding; I49.9 Cardiac arrhythmia, unspecified; X58.XXXA Exposure to other specified factors, initial encounter; Z96.641 Presence of right artificial hip joint; Z79.01 Long term (current) use of anticoagulants
CPT/HCPCS: 72192

== ENCOUNTER 2023-09-24 16:17 | Emergency (ER) | payer MEDICARE ==
[2023-09-24 16:52] VITALS: BP 163/70; PULSE 80; RESP 20; TEMP 98.1
[2023-09-24] MEDS: TOPICAL SKIN ADHESIVE 1 EACH AMP TOPICAL ONE (17:04)
--- NOTE | 2023-09-24 17:11 | ED ---
Fall HPI - General Chief Complaint: Fall Stated Complaint: Fall Time Seen by Provider: 09/24/23 16:24 Source: patient, RN notes reviewed, old records reviewed, Caregiver Mode of arrival: EMS Limitations: no limitations - History of Present Illness Initial Comments: This is a 87-year-old male per EMS after a fall slip and fall from standing skin tears of the left forearm pain in the left forearm abrasions to left forearm. No other traumatic injury patient has no headache denies hitting his head no headache no neck pain able to move all extremities without difficulty and is able to ambulate without difficulty. Patient has no significant complaints no traumatic pain no bone pain able to have full range of motion of the elbow MD Complaint: fall -: days(s) Fall From: standing When Fall Occurred: 1 hour [employer] Fall Witnessed: no, yes, by family Place Fall Occurred: home Loss of Consciousness: none Prolonged Down Time?: no Symptoms Prior to Fall: none Location - Extremities: Left: Elbow, Forearm Severity: moderate Severity scale (1-10): 4 Context: tripped/slipped Associated Symptoms: denies - Related Data Home Medications Medication Instructions Recorded Confirmed Multivitamin/Iron/Folic Acid 1 tab PO DAILY 07/06/14 09/09/22 [Centrum Complete Multivit Tab] Warfarin [Coumadin] 7.5 mg PO SUTUTHSA 11/01/16 09/09/22 Verapamil [Isoptin] 80 mg PO QID 10/28/19 09/09/22 Furosemide [Lasix] 20 mg PO DAILY@1200 09/09/22 09/09/22 Furosemide [Lasix] 40 mg PO W/BRKFST 09/09/22 09/09/22 Warfarin [Coumadin] 5 mg PO MOWEFR 09/09/22 09/09/22 Allergies Allergy/AdvReac Type Severity Reaction Status Date / Time Penicillins Allergy Unknown Verified 09/24/23 16:27 Childhood Sulfa (Sulfonamide Allergy Unknown Verified 09/24/23 16:27 Antibiotics) Childhood Review of Systems ROS Statement: Those systems with pertinent positive or pertinent negative responses have been documented in the HPI. ROS Other: All systems not noted in ROS Statement are negative. Past Medical History Past Medical History: Atrial Fibrillation, Deep Vein Thrombosis (DVT), Eye Disorder, Hypertension Additional Past Medical History / Comment(s): DVT X3, DIVERTICULITIS, SHOE LIFT RT SHOE-NO BALANCE ISSUES,chris cataracts History of Any Multi-Drug Resistant Organisms: None Reported Past Surgical History: Adenoidectomy, Appendectomy, Cholecystectomy, Hernia Repair, Joint Replacement, Tonsillectomy Additional Past Surgical History / Comment(s): CHRIS INGUINAL HERNIAS, RT HIP REPLACEMENT. PER PT'S IN 2011 PT HAD BURST VESSEL THAT WENT TO BOWEL TOOK 3 SX TO REPAIR. HAD THE SX AT [facility].ORIF RT WRIST, [place] filter Past Anesthesia/Blood Transfusion Reactions: No Reported Reaction Past Psychological History: No Psychological Hx Reported Smoking Status: Never smoker Past Alcohol Use History: None Reported Past Drug Use History: None Reported - Past Family History Father Additional Family Medical History / Comment(s): AGE 96 HAD A HEART TRANSPLANT AT AGE 91 Mother Family Medical History: No Reported History General Exam Limitations: no limitations General appearance: alert, in no apparent distress Head exam: Present: atraumatic, normocephalic, normal inspection Eye exam: Present: normal appearance, PERRL, EOMI. Absent: scleral icterus, conjunctival injection, periorbital swelling ENT exam: Present: normal exam, mucous membranes moist Neck exam: Present: normal inspection. Absent: tenderness, meningismus, lymphadenopathy Respiratory exam: Present: normal lung sounds bilaterally. Absent: respiratory distress, wheezes, rales, rhonchi, stridor Cardiovascular Exam: Present: regular rate, normal rhythm, normal heart sounds. Absent: systolic murmur, diastolic murmur, rubs, gallop, clicks GI/Abdominal exam: Present: soft, normal bowel sounds. Absent: distended, tenderness, guarding, rebound, rigid Extremities exam: Present: full ROM, normal capillary refill. Absent: normal inspection (Does have multiple skin tears of the left upper extremity, 6 cm in total length, 2 cm in total width), tenderness, pedal edema, joint swelling, calf tenderness Back exam: Present: normal inspection Neurological exam: Present: alert, oriented X3, CN II-XII intact Psychiatric exam: Present: normal affect, normal mood Skin exam: Present: warm, dry, intact, normal color. Absent: rash Course Vital Signs 09/24/23 16:22 Temperature 98.1 F Pulse Rate 80 Respiratory 20 Rate Blood Pressure 163/70 O2 Sat by Pulse 93 L Oximetry - Reevaluation(s) Reevaluation #1: 09/24/23 17:08 Medical records reviewed Reevaluation #2: 09/24/23 17:09 Patient symptoms improved. Was cleaned Reevaluation #3: 09/24/23 17:09 Patient informed of results questions answered Reevaluation #4: Was pt. sent in by a medical professional or institution (TAVON Wong, DELIVERY REPRESENTATIVE, urgent care, hospital, or [facility]...) When possible be specific @ -no Did you speak to anyone other than the patient for history (EMS, parent, family, police, friend...)? What history was obtained from this source @ -no Did you review nursing and triage notes (agree or disagree)? Why? @ -agree Are old charts reviewed (outside hosp., previous admission, EMS record, old EKG, old radiological studies, urgent care reports/EKG's, [facility] records)? Report findings @ -yes Differential Diagnosis (chest pain, altered mental status, abdominal pain women, abdominal pain men, vaginal bleeding, weakness, fever, dyspnea, syncope, headache, dizziness, GI bleed, back pain, seizure, CVA, palpatations, mental health, musculoskeletal)? @ -prior EKG interpreted by me (3pts min.). @ -no X-rays interpreted by me (1pt min.). @ -no CT interpreted by me (1pt min.). @ -no U/S interpreted by me (1pt. min.). @ -no What testing was considered but not performed or refused? (CT, X-rays, U/S, labs)? Why? @ -none What meds were considered but not given or refused? Why? @ -none Did you discuss the management of the patient with other professionals (professionals i.e. TAVON Wong, DELIVERY REPRESENTATIVE, lab, RT, psych nurse, director social service, senior dot net developer, teacher, state wildlife officer, manager case)? Give summary @ -no Was smoking cessation discussed for >3mins.? @ -no Was critical care preformed (if so, how long)? @ -no Were there social determinants of health that impacted care today? How? (Homelessness, low income, unemployed, alcoholism, drug addiction, transportation, low edu. Level, literacy, decrease access to med. care, nursing home, rehab)? @ -none Was there de-escalation of care discussed even if they declined (Discuss DNR or withdrawal of care, Hospice)? DNR status @ -no What co-morbidities impacted this encounter? (DM, HTN, Smoking, COPD, CAD, Cancer, CVA, ARF, Chemo, Hep., AIDS, mental health diagnosis, sleep apnea, morbid obesity)? @ -none Was patient admitted / discharged? Hospital course, mention meds given and route, prescriptions, significant lab abnormalities, going to OR and other pertinent info. @ - 87 male to the ER for evaluation of fall slip and fall to the pavement with abrasion left elbow skin tear left elbow. Laceration to elbow is a skin tear, wound is cleaned and dressed with Dermabond and patient can be discharged home Discharge Undiagnosed new problem with uncertain prognosis? @ -no Drug Therapy requiring intensive monitoring for toxicity (Heparin, Nitro, Insulin, Cardizem)? @ -no Were any procedures done? @ -no Diagnosis/symptom? @ - Acute, or Chronic, or Acute on Chronic? @ -Acute Uncomplicated (without systemic symptoms) or Complicated (systemic symptoms)? @ -Complicated Side effects of treatment? @ -no Exacerbation, Progression, or Severe Exacerbation? @ -exacerbation Poses a threat to life or bodily function? How? (Chest pain, USA, MS, pneumonia, PE, COPD, DKA, ARF, appy, cholecystitis, CVA, Diverticulitis, Homicidal, Suici daniel, threat to staff... and all critical care pts) @ -yes due to extremes of age fall, elbow laceration skin tear Procedures - Laceration Laceration #1 Consent Obtained: verbal consent Indication: laceration Site: upper extremity Size (cm): 6 Description: irregular (Skin tear) Depth: simple, single layer (Skin tear) Type of Sutures: other (Dermabond) Patient Tolerated Procedure: well Medical Decision Making - Medical Decision Making 87 male to the ER for evaluation of fall slip and fall to the pavement with abrasion left elbow skin tear left elbow. Laceration to elbow is a skin tear, wound is cleaned and dressed with Dermabond and patient can be discharged home Disposition Clinical Impression: Fall, Skin tear of elbow without complication, Abrasion of left elbow Disposition: HOME SELF-CARE Condition: Good Instructions (If sedation given, give patient instructions): Fall Prevention for Older Adults (ED), Skin Tear (ED) Is patient prescribed a controlled substance at d/c from ED?: No Referrals: Lobo Anaya MD [Primary Care Provider] - 1-2 days Time of Disposition: 17:00
== END 2023-09-24 17:11 | disposition home or self-care (01) ==
LOC: EC 16:17
DX: S51.012A Laceration without foreign body of left elbow, initial encounter (principal); Z88.0 Allergy status to penicillin; Z88.2 Allergy status to sulfonamides; W01.0XXA Fall on same level from slipping, tripping and stumbling without subsequent striking against object, initial encounter
CPT/HCPCS: 12002; 99283; 99284